=== PATIENT | female | born 1970 | race Caucasian/White ===

== ENCOUNTER 2016-08-27 08:57 | Emergency (ER) | payer SELFPAY ==
[~2016-08-27] VITALS: Ht 160 cm; Wt 101.0 kg
[~2016-08-27 08:57] MED LIST: ALBUTEROL SUL0.083 % IN; AMOXICILLIN500 MG OR; AMOXICILLIN500 MG PO; ANTIVERT PO; ATIVAN0.5 MG PO; ATIVAN1 M1 OR; ATIVAN1 MG PO; AUGMENTIN875 MG OR; CEPHALEXIN500 M1 PO; CEPHALEXIN500 MG OR; CIPRO500 MG OR; CIPROFLOXACN500 MG PO; CORTISPORIN OTI10 M1 OT; CYTOMEL25 MC1 PO; FAMVIR500 MG PO; FISH OIL1000 MG OR; FLEXERIL5 M1 PO; LEVOTHYROXIN200 MC2 PO; LIPITOR40 MG PO; LORTAB 10 OR; LORTAB 10-325 M1 TAB PO; LORTAB 1010 MG PO; LORTAB 5 OR; LORTAB 7.5 OR; MEDDOSEPAK PO; METHADONE HCL10 MG OR; METHADONE40 MG OR; METO50TA52 OR; METOPROL TAR25 MG PO; MOTRIN800 MG PO; NAPROXEN500 MG PO; OXYCO/APAP1 TA5 PO; PAXIL10 MG OR; PENICILLN VK500 MG OR; PENICILLN VK500 MG PO; PERCOCET 5/325M1 TAB OR; PERCOCET1 TA1 OR; PERCOCET1 TA2 OR; ROBITUSSIN AC10 ML PO; SIMVASTATIN20 MG PO; SIMVASTATIN40 MG PO; SIMVASTATIN80 MG OR; SYNTHROID100 MCG PO; SYNTHROID125 MCG OR; SYNTHROID150 MCG OR; SYNTHROID150 MCG PO; SYNTHROID300 MCG OR; TRAZODONE HCL100 MG OR; TRAZODONE100 MG OR; TRAZODONE100 MG PO; ULTRAM50 M1 PO; ULTRAM50 MG OR; ULTRAM50 MG PO; VICODIN ES1 TAB OR; ZOCOR OR; ZOCOR80 MG OR; ZOFRAN ODT4 MG PO; ZOLOFT50 MG OR; ZOVIRAX51 EX
[2016-08-27 10:26] LABS: HEMATOCRIT 42.8 % (37.0-47.0); HEMOGLOBIN 13.6 g/dl (12.0-16.0); IMMATURE GRANULOCYTES 0.7 % (0.0-1.0); MEAN CELL VOLUME 87.5 fL CALC (80.0-100.0); MEAN CORPUSCULAR HGB 27.8 pG CALC (26.0-32.0); MEAN CORPUSCULAR HGB CONC 31.8 g/L CALC (32.0-36.0); NEUT# 3.76 thou/uL (2.00-7.15); RED BLOOD COUNT 4.89 mill/uL (4.20-5.60); RED CELL DISTRI WIDTH 14.6 % (11.5-15.5)
[2016-08-27 10:39] LABS: ALKALINE PHOSPHATASE 118 u/l (38-126); ANION GAP 13 (6-22 (CALC)); BILIRUBIN, TOTAL 0.5 mg/dL (0.0-1.4); BUN 11 mg/dL (7-17); BUN/CREATININE RATIO 15 (12-20 (CALC)); CALCIUM 9.7 mg/dL (8.4-10.2); CARBON DIOXIDE 29 mmol/l (22-30); CHLORIDE 101 mmol/l (95-108); CREATININE 0.7 mg/dL (0.5-1.0); GFR > 60 ML/MIN (>=60 (CALC)); GFR FOR AFR.AMER. > 60 ML/MIN (>=60 (CALC)); GLUCOSE 106 mg/dL (65-105); POTASSIUM 3.5 mmol/l (3.5-5.1); SGOT/AST 35 u/l (14-36); SGPT/ALT 36 u/l (9-52); SODIUM 139 mmol/l (137-146)
[2016-08-27] MEDS ORDERED: PERCOCET 5/325M1 TAB PO (13:28)
[2016-08-27 13:31] VITALS: BP 111/55
== END 2016-08-27 13:41 | disposition home or self-care (01) | DRG 93 ==
LOC: ED 08:57
PROVIDERS: Emergency Medicine
DX: G89.29 Other chronic pain (principal); K76.0 Fatty (change of) liver, not elsewhere classified; M25.562 Pain in left knee; M25.561 Pain in right knee; I89.0 Lymphedema, not elsewhere classified

== ENCOUNTER 2016-09-03 15:55 | Emergency (ER) | payer SELFPAY ==
[~2016-09-03] VITALS: Ht 160 cm; Wt 100.0 kg
[~2016-09-03 15:55] MED LIST changes: +PERCOCET 5/325M1 TAB PO
[2016-09-03] MEDS ORDERED: PERCOCET 5/325M1 TAB PO (16:21)
[2016-09-03 16:41] VITALS: BP 143/87
== END 2016-09-03 16:55 | disposition home or self-care (01) | DRG 558 ==
LOC: ED 15:55
DX: M71.22 Synovial cyst of popliteal space [Baker], left knee (principal); M25.561 Pain in right knee; M71.21 Synovial cyst of popliteal space [Baker], right knee; M25.562 Pain in left knee

== ENCOUNTER 2017-10-29 15:03 | Emergency (ER) | payer SELFPAY ==
[~2017-10-29] VITALS: Ht 160 cm; Wt 105.0 kg
[2017-10-29 15:48] LABS: HEMOGLOBIN 11.8 g/dl (12.0-16.0); MEAN CORPUSCULAR HGB 30.7 pG CALC (26.0-32.0); MEAN CORPUSCULAR HGB CONC 32.5 g/L CALC (32.0-36.0); NEUT# 3.5 thou/uL (2.00-7.15); RED BLOOD COUNT 3.84 mill/uL (4.20-5.60); RED CELL DISTRI WIDTH 14.6 % (11.5-15.5)
[2017-10-29 15:50] LABS: HEMATOCRIT 36.3 % (37.0-47.0); MEAN CELL VOLUME 94.5 fL CALC (80.0-100.0)
[2017-10-29 16:06] LABS: ALKALINE PHOSPHATASE 72 u/l (38-126); AMYLASE 78 u/l (30-110); ANION GAP 9 (6-22 (CALC)); BILIRUBIN, TOTAL 0.4 mg/dL (0.0-1.4); BUN 12 mg/dL (7-17); BUN/CREATININE RATIO 9 (12-20 (CALC)); CARBON DIOXIDE 33 mmol/l (22-30); CHLORIDE 101 mmol/l (95-108); CREATININE 1.4 mg/dL (0.5-1.0); GFR 40 ML/MIN (>=60 (CALC)); GFR FOR AFR.AMER. 48 ML/MIN (>=60 (CALC)); LIPASE 66 u/l (23-300); POTASSIUM 3.8 mmol/l (3.5-5.1); SGPT/ALT 53 u/l (9-52); SODIUM 140 mmol/l (137-146); TOTAL PROTEIN 7.4 g/dL (6.3-8.2)
[2017-10-29] MEDS ORDERED: PAXIL40 MG PO (16:11)
[2017-10-29] MEDS ORDERED: XANAX1 MG PO (16:12)
[2017-10-29] MEDS ORDERED: SYNTHROID100 MCG PO ×2 (16:13→17:55)
[2017-10-29] MEDS ORDERED: TRAZODONE50 MG PO (16:14)
[2017-10-29 16:15] LABS: SGOT/AST 62 u/l (14-36)
[2017-10-29 17:46] LABS: URINE BILIRUBIN - DIPSTICK NEGATIVE (NEGATIVE); URINE BLOOD DIPSTICK TRACE-INTACT (NEGATIVE); URINE COLOR YELLOW; URINE GLUCOSE - DIPSTICK NEGATIVE (NEGATIVE); URINE KETONE NEGATIVE (NEGATIVE); URINE LEUK ESTERASE TRACE (NEGATIVE); URINE NITRITE - DIPSTICK NEGATIVE (Negative); URINE PROTEIN - DIPSTICK NEGATIVE (NEG-TRACE); URINE UROBILINOGEN - DIPSTICK 0.2 E.U./dL (0.2)
[2017-10-29 17:47] LABS: URINE CLARITY CLEAR
[2017-10-29] MEDS ORDERED: MAGNESIUM296 ML/BTL PO (17:55)
[2017-10-29 18:19] VITALS: BP 126/84
== END 2017-10-29 18:19 | disposition home or self-care (01) | DRG 392 ==
LOC: ED 15:03
PROVIDERS: Family Medicine
DX: K59.00 Constipation, unspecified (principal); E03.9 Hypothyroidism, unspecified; F17.290 Nicotine dependence, other tobacco product, uncomplicated; R10.13 Epigastric pain; R33.9 Retention of urine, unspecified; R10.12 Left upper quadrant pain; R10.11 Right upper quadrant pain

== ENCOUNTER 2019-05-20 | Observation (INO) | payer SELFPAY ==
[~2019-05-20] MED LIST changes: +MAGNESIUM296 ML/BTL PO; +PAXIL40 MG PO; +TRAZODONE50 MG PO; +XANAX1 MG PO
[2019-05-20] MEDS ORDERED: PROZAC20 MG PO (20:20)
[2019-05-20 20:59] LABS: HEMATOCRIT 34.8 % (37.0-47.0); HEMOGLOBIN 11.3 g/dl (12.0-16.0); IMMATURE GRANULOCYTES 0.9 % (0.0-5.0); MEAN CELL VOLUME 92.8 fL CALC (80.0-100.0); MEAN CORPUSCULAR HGB 30.1 pG CALC (26.0-32.0); MEAN CORPUSCULAR HGB CONC 32.5 g/L CALC (32.0-36.0); NEUT# 4.71 thou/uL (2.00-7.15); RED BLOOD COUNT 3.75 mill/uL (4.20-5.60); RED CELL DISTRI WIDTH 13.9 % (11.5-15.5)
[2019-05-20 21:04] LABS: URINE BLOOD DIPSTICK TRACE-INTACT (NEGATIVE); URINE GLUCOSE - DIPSTICK NEGATIVE (NEGATIVE); URINE KETONE TRACE mg/dL (NEGATIVE); URINE LEUK ESTERASE NEGATIVE (NEGATIVE); URINE NITRITE - DIPSTICK NEGATIVE (Negative); URINE PROTEIN - DIPSTICK 100 mg/dL (NEG-TRACE); URINE SPECIFIC GRAVITY >=1.030
[2019-05-20 21:08] LABS: BARBITURATES NEGATIVE (NEGATIVE); COCAINE NEGATIVE (NEGATIVE); METHADONE NEGATIVE (NEGATIVE); OXCYCODONE NEGATIVE (NEGATIVE); TETRAHYDROCANNABIONOL NEGATIVE (NEGATIVE); TRICYLIC ANTIDEPRESSANTS NEGATIVE (NEGATIVE)
[2019-05-20 21:09] LABS: URINE BILIRUBIN - DIPSTICK NEGATIVE (NEGATIVE); URINE COLOR DK. YELLOW
[2019-05-20 21:09] LABS: ACT PARTIAL THROMBO TIME 29.2 SECONDS (20.0-32.5); D-DIMER 0.45 mg/L (0.19-0.60); PROTHROMBIN TIME 10.2 SECONDS (9.0-12.5)
[2019-05-20 21:12] LABS: ALBUMIN 4.4 g/dL (3.2-5.0); ALKALINE PHOSPHATASE 98 u/l (38-126); AMYLASE 75 u/l (30-110); ANION GAP 12 (6-22 (CALC)); BILIRUBIN, TOTAL 0.5 mg/dL (0.0-1.4); BUN 15 mg/dL (7-17); BUN/CREATININE RATIO 11 (12-20 (CALC)); CARBON DIOXIDE 27 mmol/l (22-30); CHLORIDE 100 mmol/l (95-108); CREATININE 1.4 mg/dL (0.5-1.0); GFR 40 ML/MIN (>=60 (CALC)); GFR FOR AFR.AMER. 48 ML/MIN (>=60 (CALC)); LIPASE 67 u/l (23-300); POTASSIUM 3.6 mmol/l (3.5-5.1); SGOT/AST 101 u/l (14-36); SODIUM 135 mmol/l (137-146)
[2019-05-20 21:19] LABS: URINE MUCUS FEW hpf (NONE-FEW); URINE SQUAMOUS EPITHELIAL CELL FEW EPI/hpf (0-FEW)
[2019-05-20 21:24] LABS: MYOGLOBIN 415 ng/mL (0 - 62)
[2019-05-20 22:20] LABS: TSH, 3RD GENERATION > 100.00 uIU/mL (0.47 - 4.68)
== END 2019-05-20 23:20 | disposition left against medical advice (07) | DRG 313 ==
PROVIDERS: Family Medicine; ADMIT Internal Medicine
DX: R07.9 Chest pain, unspecified (principal); F15.90 Other stimulant use, unspecified, uncomplicated; E03.9 Hypothyroidism, unspecified; F17.210 Nicotine dependence, cigarettes, uncomplicated
CPT/HCPCS: G0378; J1650

== ENCOUNTER 2019-05-24 12:27 | Emergency (ER) | payer SELFPAY ==
[~2019-05-24 12:27] MED LIST changes: +PROZAC20 MG PO
[2019-05-24] MEDS ORDERED: XANAX1 MG PO (14:26)
[2019-05-24 14:37] VITALS: BP 168/87
== END 2019-05-24 14:37 | disposition home or self-care (01) | DRG 951 ==
LOC: ED 12:27
DX: Z76.0 Encounter for issue of repeat prescription (principal); F41.9 Anxiety disorder, unspecified; F17.210 Nicotine dependence, cigarettes, uncomplicated

== ENCOUNTER 2019-06-07 12:27 | Inpatient (IN) | payer SELFPAY ==
[2019-06-07] VITALS (9 sets, daily range): BP systolic 102–149; BP diastolic 64–97
[~2019-06-07] VITALS: Ht 160 cm; Wt 109.5 kg
--- NOTE | 2019-06-07 12:30 | NUR ---
PATIENT STATES WANTING TO END HER LIFE TOON 45 325MG TYLENOL AT 1000 AND 8MG OF XANAX 8 HOURS PRIOR TO ARRIVAL TODAY. POISON CONTROL CONTACTED AND MD NOTIFIED OF RECOMMENDATIONS. PATIENT RESTING IN DIRECT LINE OF SIGHT. ALL DANGEROUS ITEMS WERE REMOVED FROM ROOM AND PATIENT CHECKED FOR ANY HAZARDOUS ITEMS
[2019-06-07 13:41] LABS: HEMATOCRIT 40.7 % (37.0-47.0); HEMOGLOBIN 13.2 g/dl (12.0-16.0); IMMATURE GRANULOCYTES 0.4 % (0.0-5.0); MEAN CELL VOLUME 92.7 fL CALC (80.0-100.0); MEAN CORPUSCULAR HGB 30.1 pG CALC (26.0-32.0); MEAN CORPUSCULAR HGB CONC 32.4 g/L CALC (32.0-36.0); NEUT# 4.11 thou/uL (2.00-7.15); RED BLOOD COUNT 4.39 mill/uL (4.20-5.60)
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
[2019-06-07 13:58] LABS: PROTHROMBIN TIME 10.7 SECONDS (9.0-12.5)
[2019-06-07 14:01] LABS: ALBUMIN 4.7 g/dL (3.2-5.0); ALKALINE PHOSPHATASE 97 u/l (38-126); ANION GAP 14 (6-22 (CALC)); BILIRUBIN, TOTAL 0.6 mg/dL (0.0-1.4); BUN 23 mg/dL (7-17); BUN/CREATININE RATIO 12 (12-20 (CALC)); CARBON DIOXIDE 26 mmol/l (22-30); CHLORIDE 101 mmol/l (95-108); CPK 1466 u/l (30-165); CREATININE 1.9 mg/dL (0.5-1.0); GFR 28 ML/MIN (>=60 (CALC)); GFR FOR AFR.AMER. 34 ML/MIN (>=60 (CALC)); LIPASE 62 u/l (23-300); POTASSIUM 3.6 mmol/l (3.5-5.1); SGOT/AST 62 u/l (14-36); SODIUM 137 mmol/l (137-146); TOTAL PROTEIN 8.3 g/dL (6.3-8.2)
--- NOTE | 2019-06-07 14:32 | NUR ---
PATEINT RESTING AWAITING LAB RESULTS. MEDS INFUSING PER MD ORDER. PATIENT DENIES ANY PAIN OR CONCERNS AT THIS TIME. PATIENT REMAINS ONE TO ONE. PATIENT HAS NO HAZARDOUS ITEMS AT BEDSIDE
--- NOTE | 2019-06-07 15:26 | NUR ---
PATIENT TRANSPORTED TO ICU. PATIEN DENIES ANY PAIN OR DISCOMFORT AT THIS TIME. PATIENT ALERT AND ORIENTED TIMES 3.
--- NOTE | 2019-06-07 15:40 | NUR ---
PT TO ICU BED 5 VIA STRETCHER. PT ABLE TO AMBULATE TO BSC THEN AMBULATED TO BED. URINE SPECIMEN OBTAINED AND SENT TO LAB. PT IS ALERT AND ORIENTED X3. ADMISSION ASSESSMENT COMPLETED AT THIS TIME. IV PATENT X1. ORIENTED PT TO ROOM AND UNIT. CALL LIGHT IN REACH. PT 1:1 AT THIS TIME. WILL CONTINUE TO MONITOR
[2019-06-07 15:59] LABS: URINE BILIRUBIN - DIPSTICK NEGATIVE (NEGATIVE); URINE BLOOD DIPSTICK TRACE-LYSED (NEGATIVE); URINE COLOR YELLOW; URINE GLUCOSE - DIPSTICK NEGATIVE (NEGATIVE); URINE KETONE 40 mg/dL (NEGATIVE); URINE LEUK ESTERASE TRACE (NEGATIVE); URINE NITRITE - DIPSTICK NEGATIVE (Negative); URINE PH 5.5 (4.5-8.0); URINE PROTEIN - DIPSTICK NEGATIVE (NEG-TRACE); URINE SPECIFIC GRAVITY 1.025; URINE UROBILINOGEN - DIPSTICK 0.2 E.U./dL (0.2)
[2019-06-07 16:04] LABS: COCAINE NEGATIVE (NEGATIVE); METHADONE NEGATIVE (NEGATIVE); TETRAHYDROCANNABIONOL NEGATIVE (NEGATIVE); TRICYLIC ANTIDEPRESSANTS NEGATIVE (NEGATIVE)
[2019-06-07 16:05] LABS: BARBITURATES NEGATIVE (NEGATIVE); OXCYCODONE NEGATIVE (NEGATIVE)
--- NOTE | 2019-06-07 16:40 | NUR ---
PT STATES THAT SHE IS HAVING ANXIETY AND WANTS TO TAKE EVERYTHING OFF AND RUN OUT OF HERE.
--- NOTE | 2019-06-07 16:41 | NUR ---
DR DUVALL NOTIFIED OF THREATS AND INCREASED ANXIETY
--- NOTE | 2019-06-07 17:20 | NUR ---
ADAM HUSAIN AT DOOR. EXPALINED THAT PATIENT WAS NOT ALLOWED VISITORS. PT BECAME DEMANDING TO SEE SPOUSE EXPLAINED THAT SHE IS A LI ACT AND NOT ALLED VISITORS. EXPLAINED THAT DAUGHTER HAD REQUESTED NO INFORMATION BE GIVEN. ADAM MEI AT THIS TIME. THEN WENT TO MED SURG TO GIVE PHONE NUMBER.
--- NOTE | 2019-06-07 17:30 | NUR ---
SECOND UDS OBTAINED PER MD ORDER.
--- NOTE | 2019-06-07 17:45 | NUR ---
PT SET UP FOR PM MEAL AT THIS TIME
--- NOTE | 2019-06-07 17:59 | NUR ---
LAB AT BEDSIDE TO DRAW BLOOD WORK
--- NOTE | 2019-06-07 18:18 | NUR ---
PT GIVES PERMISSION FOR ADAM TO HAVE ALL MEDICAL INFORMATION VIA TELEPHONE AT THIS TIME.
--- NOTE | 2019-06-07 18:25 | NUR ---
CALL PLACED TO ADAM AT [phone] AT THIS THIS VOICEMAIL LEFT TO CALL [facility] ICU. PT THEN YELLS OUT FROM ROOM OH YOU GOT HIS VOICEMAIL. EXPLAINED THAT WE WILL NOT BE DOING THIS ALL NIGHT A MESSAGING SERVICE. I WILL UPDATE ON STATUS AND HE CAN CALL FROM THERE FOR UPDATES. SHE IS IN THE ICU WITH OTHER SICK PATIENTS. PATIENT VERBALIZED UNDERSTANDING
[2019-06-07 18:39] LABS: BARBITURATES NEGATIVE (NEGATIVE); COCAINE NEGATIVE (NEGATIVE); METHADONE NEGATIVE (NEGATIVE); OXCYCODONE NEGATIVE (NEGATIVE); TETRAHYDROCANNABIONOL NEGATIVE (NEGATIVE); TRICYLIC ANTIDEPRESSANTS NEGATIVE (NEGATIVE)
--- NOTE | 2019-06-07 18:48 | NUR ---
POISON CONTROL PHONED UNIT. NEW RECOMMENDATIONS GIVEN FOR AM LABS. NOTIFIED OF POSITIVE UDS.
--- NOTE | 2019-06-07 18:50 | NUR ---
RECEIVED REPORT FROM MARGE HOWARD.
--- NOTE | 2019-06-07 19:05 | NUR ---
RECEIVED PT SLEEPING IN BED. RESP EVEN AND UNLABORED. SITTER AT BEDSIDE.
--- NOTE | 2019-06-07 20:00 | NUR ---
PT WITH EYES CLOSED, RESPONDS TO VERBAL STIMULI. FOLLOWS COMMANDS. NO DISTRESS NOTED AT THIS TIME. SITTER AT BEDSIDE.
--- NOTE | 2019-06-07 21:15 | NUR ---
PT ASSISTED TO BSC.
--- NOTE | 2019-06-07 22:00 | NUR ---
PT WITH EYES CLOSED, RESPONDS TO VERBAL STIMULI. PT RELATED SHE FEELS BETTER, LESS ANXIOUS. SITTER AT BEDSIDE.
[2019-06-08] VITALS (11 sets, daily range): BP systolic 99–152; BP diastolic 46–96
--- NOTE | 2019-06-08 | NUR ---
PT WITH EYES CLOSED, RESPONDS TO VERBAL STIMULI. RESP EVEN AND UNLABORED. SITTER AT BEDSIDE.
--- NOTE | 2019-06-08 02:16 | NUR ---
ASSISTED BACK TO BED. CALL GALVEZ IN REACH.
--- NOTE | 2019-06-08 07:10 | NUR ---
REPORT RECEIVED FROM ANITA CARDOSO. PT RESTING IN BED SEMI FOWLERS; ALERT AND ORIENTED. C/O MILD CHRONIC BACK PAIN. RESPIRATIONS EVEN AND UNLABRORED ON ROOM AIR. LUNGS ARE CLEAR. LI ACT. SITTER AT BEDSIDE. PLAN OF CARE REVIEWED. PT ENCOURAGED TO VERBALIZE CONCERNS. STATES UNDERSTANDING. SAFETY MEASURES IN PLACE. CALL LIGHT WITHIN REACH.
[2019-06-08 08:14] LABS: HEMATOCRIT 40.3 % (37.0-47.0); MEAN CELL VOLUME 91.8 fL CALC (80.0-100.0); MEAN CORPUSCULAR HGB 29.6 pG CALC (26.0-32.0); MEAN CORPUSCULAR HGB CONC 32.3 g/L CALC (32.0-36.0); RED BLOOD COUNT 4.39 mill/uL (4.20-5.60)
--- NOTE | 2019-06-08 08:26 | NUR ---
DR. DUVALL AT BEDSIDE.
[2019-06-08 08:47] LABS: INTERNATIONAL NORMALIZED RATIO 1.1 RATIO (0.7-1.3); PROTHROMBIN TIME 11.1 SECONDS (9.0-12.5)
[2019-06-08 08:56] LABS: ALBUMIN 4.4 g/dL (3.2-5.0); BILIRUBIN, TOTAL 0.4 mg/dL (0.0-1.4); CREATININE 1.2 mg/dL (0.5-1.0); POTASSIUM 3.6 mmol/l (3.5-5.1); TOTAL PROTEIN 7.8 g/dL (6.3-8.2)
[2019-06-08] MEDS ORDERED: LORTAB 1010 MG PO (09:43)
[2019-06-08] MEDS ORDERED: WELLBUTRIN100 M2 PO (09:43)
--- NOTE | 2019-06-08 10:02 | NUR ---
XANAX GIVEN FOR ANXIETY; MED REC UPDATED. PT REQUESTING DISCHARGE TO GO TO [facility]. SITTER AT BEDSIDE. IV FLUIDS INFUSING WITHOUT DIFFICULTY; IV SITE APPEARS HEALTHY.
--- NOTE | 2019-06-08 11:15 | NUR ---
PT ASSISTED TO BSC, PT AMBULATED WITH A STEADY GAIT, PT TOLERATED WELL
--- NOTE | 2019-06-08 11:30 | NUR ---
PT ASSISTED WITH SETUP FOR LUNCH
--- NOTE | 2019-06-08 14:13 | NUR ---
POSIION CONTROL UPDATED ON PT STATUS. SPOKE WITH JOVAN; SAYS PT IS OK FOR DISCHARGE LONG SHE STAYS WELL HYDRATED. DR. DUVALL NOTIFIED OF RECOMMENDATION.
--- NOTE | 2019-06-08 16:23 | NUR ---
PT RESTING COMFORTABLY IN BED WATCHING TV. SITTER AT BEDSIDE. CASE MANAGMENT CONSULTING FOR POSSIBLE DISCHARGE TO [facility]. SAFETY MEASURES IN PLACE. CALL LIGHT WITHIN REACH.
--- NOTE | 2019-06-08 19:05 | NUR ---
RECEIVED REPORT FROM LIANNA HOWARD.
--- NOTE | 2019-06-08 20:00 | NUR ---
PT WITH EYES CLOSED, RESPONDED TO VERBAL STIMULI. SITTER AT BEDSIDE. NO DISTRESS NOTED.
--- NOTE | 2019-06-08 20:30 | NUR ---
SPOKE TO SARAH AT [facility]. HE STATES PATIENT INFORMATION HAS BEEN REVIEWED AND ACCEPTABLE FOR TRANSFER. WILL NOTIFY
--- NOTE | 2019-06-08 20:35 | NUR ---
PT REQUESTED HER ANXIETY MED. PT RELATED SHE IS FEELING ANXIOUS.
--- NOTE | 2019-06-08 21:57 | NUR ---
[facility] CALLED FOR TRANSPORT TO [facility].
--- NOTE | 2019-06-08 22:20 | NUR ---
[facility] AT BEDSIDE.
--- NOTE | 2019-06-08 22:25 | NUR ---
PT IN W/C, DEPARTED WITH [facility].
--- NOTE | 2019-06-08 22:40 | NUR ---
[facility] CALLED, INFORMED PT ENROUTE.
== END 2019-06-08 22:35 | disposition designated cancer center or children's hospital (05) | DRG 918 ==
LOC: ED 12:27 → ED-I 14:33 → ED 14:53 → ICU 14:54
PROVIDERS: Family Medicine; ADMIT Internal Medicine; ATTEND Internal Medicine
DX: T39.1X2A Poisoning by 4-Aminophenol derivatives, intentional self-harm, initial encounter (principal); Q60.0 Renal agenesis, unilateral; N17.9 Acute kidney failure, unspecified; T42.4X2A Poisoning by benzodiazepines, intentional self-harm, initial encounter; E86.0 Dehydration; F31.9 Bipolar disorder, unspecified; F41.9 Anxiety disorder, unspecified; E03.9 Hypothyroidism, unspecified; F17.200 Nicotine dependence, unspecified, uncomplicated; Z91.5 Personal history of self-harm

== ENCOUNTER 2019-06-13 | Emergency (ER) | payer OTHER ==
[~2019-06-13] MED LIST changes: +WELLBUTRIN100 M2 PO
[2019-06-13] MEDS ORDERED: INDERAL 20MG TA20 MG PO (22:58)
[2019-06-13] MEDS ORDERED: PRAVACHOL20 MG PO (22:59)
[2019-06-13 23:00] LABS: HEMATOCRIT 37.4 % (37.0-47.0); HEMOGLOBIN 11.8 g/dl (12.0-16.0); IMMATURE GRANULOCYTES 0.3 % (0.0-5.0); MEAN CELL VOLUME 94.9 fL CALC (80.0-100.0); MEAN CORPUSCULAR HGB 29.9 pG CALC (26.0-32.0); MEAN CORPUSCULAR HGB CONC 31.6 g/L CALC (32.0-36.0); NEUT# 3.62 thou/uL (2.00-7.15); RED BLOOD COUNT 3.94 mill/uL (4.20-5.60); RED CELL DISTRI WIDTH 14.5 % (11.5-15.5)
[2019-06-13 23:20] LABS: ALKALINE PHOSPHATASE 80 u/l (38-126); BILIRUBIN, TOTAL 0.3 mg/dL (0.0-1.4); BUN 20 mg/dL (7-17); BUN/CREATININE RATIO 17 (12-20 (CALC)); CHLORIDE 103 mmol/l (95-108); CREATININE 1.2 mg/dL (0.5-1.0); GFR 47 ML/MIN (>=60 (CALC)); GFR FOR AFR.AMER. 57 ML/MIN (>=60 (CALC)); POTASSIUM 3.8 mmol/l (3.5-5.1); SGOT/AST 37 u/l (14-36); SODIUM 138 mmol/l (137-146); TOTAL PROTEIN 7.2 g/dL (6.3-8.2)
[2019-06-13 23:22] LABS: ANION GAP 9 (6-22 (CALC)); CARBON DIOXIDE 30 mmol/l (22-30)
[2019-06-13 23:31] LABS: MYOGLOBIN 75 ng/mL (0 - 62)
[2019-06-14 02:54] LABS: URINE BILIRUBIN - DIPSTICK NEGATIVE (NEGATIVE); URINE BLOOD DIPSTICK NEGATIVE (NEGATIVE); URINE COLOR YELLOW; URINE GLUCOSE - DIPSTICK NEGATIVE (NEGATIVE); URINE KETONE NEGATIVE (NEGATIVE); URINE LEUK ESTERASE NEGATIVE (NEGATIVE); URINE NITRITE - DIPSTICK NEGATIVE (Negative); URINE PROTEIN - DIPSTICK NEGATIVE (NEG-TRACE); URINE SPECIFIC GRAVITY 1.015; URINE UROBILINOGEN - DIPSTICK 0.2 E.U./dL (0.2)
[2019-06-14 02:59] LABS: BARBITURATES NEGATIVE (NEGATIVE); COCAINE NEGATIVE (NEGATIVE); METHADONE NEGATIVE (NEGATIVE); TETRAHYDROCANNABIONOL NEGATIVE (NEGATIVE); TRICYLIC ANTIDEPRESSANTS NEGATIVE (NEGATIVE)
[2019-06-14 03:00] LABS: OXCYCODONE NEGATIVE (NEGATIVE)
== END 2019-06-14 03:59 | DRG 313 ==
PROVIDERS: Emergency Medicine
DX: R07.9 Chest pain, unspecified (principal); I25.10 Atherosclerotic heart disease of native coronary artery without angina pectoris; F17.210 Nicotine dependence, cigarettes, uncomplicated; Z95.5 Presence of coronary angioplasty implant and graft; Z02.83 Encounter for blood-alcohol and blood-drug test; F19.10 Other psychoactive substance abuse, uncomplicated

== ENCOUNTER 2019-08-24 21:15 | Emergency (ER) | payer OTHER ==
[~2019-08-24 21:15] MED LIST changes: +INDERAL 20MG TA20 MG PO; +PRAVACHOL20 MG PO
[2019-08-24 22:03] LABS: HEMOGLOBIN 11.4 g/dl (12.0-16.0); IMMATURE GRANULOCYTES 0.3 % (0.0-5.0); MEAN CELL VOLUME 91.4 fL CALC (80.0-100.0); MEAN CORPUSCULAR HGB 29.8 pG CALC (26.0-32.0); MEAN CORPUSCULAR HGB CONC 32.6 g/dL CAL (32.0-36.0); NEUT# 3.57 thou/uL (2.00-7.15); RED BLOOD COUNT 3.83 mill/uL (4.20-5.60); RED CELL DISTRI WIDTH 14.2 % (11.5-15.5)
[2019-08-24 22:19] LABS: ALBUMIN 4.5 g/dL (3.2-5.0); ALKALINE PHOSPHATASE 77 u/l (38-126); ANION GAP 11 (6-22 (CALC)); BUN 27 mg/dL (7-17); BUN/CREATININE RATIO 18 (12-20 (CALC)); CARBON DIOXIDE 26 mmol/l (22-30); CHLORIDE 101 mmol/l (95-108); CREATININE 1.5 mg/dL (0.5-1.0); GFR 37 ML/MIN (>=60 (CALC)); GFR FOR AFR.AMER. 44 ML/MIN (>=60 (CALC)); POTASSIUM 3.4 mmol/l (3.5-5.1); SGOT/AST 49 u/l (14-36); SODIUM 134 mmol/l (137-146); TOTAL PROTEIN 7.5 g/dL (6.3-8.2)
[2019-08-24 22:26] LABS: BILIRUBIN, TOTAL 0.5 mg/dL (0.0-1.4)
[2019-08-24 22:32] LABS: MYOGLOBIN 201 ng/mL (0 - 62)
== END 2019-08-24 23:48 | disposition left against medical advice (07) | DRG 313 ==
LOC: ED 21:15
PROVIDERS: Emergency Medicine
DX: R07.9 Chest pain, unspecified (principal); I25.10 Atherosclerotic heart disease of native coronary artery without angina pectoris; F17.210 Nicotine dependence, cigarettes, uncomplicated; Z91.19 Patient's noncompliance with other medical treatment and regimen

== ENCOUNTER 2019-09-13 16:01 | Emergency (ER) | payer SELFPAY ==
[2019-09-13 16:54] LABS: HEMATOCRIT 36.7 % (37.0-47.0); IMMATURE GRANULOCYTES 1.4 % (0.0-5.0); MEAN CORPUSCULAR HGB 30.1 pG CALC (26.0-32.0); MEAN CORPUSCULAR HGB CONC 32.7 g/dL CAL (32.0-36.0); NEUT# 3.88 thou/uL (2.00-7.15); RED BLOOD COUNT 3.99 mill/uL (4.20-5.60); RED CELL DISTRI WIDTH 14.9 % (11.5-15.5)
[2019-09-13 17:03] LABS: ALBUMIN 4.3 g/dL (3.2-5.0); ALKALINE PHOSPHATASE 76 u/l (38-126); ANION GAP 13 (6-22 (CALC)); BUN 11 mg/dL (7-17); BUN/CREATININE RATIO 11 (12-20 (CALC)); CARBON DIOXIDE 25 mmol/l (22-30); CHLORIDE 102 mmol/l (95-108); GFR 58 ML/MIN (>=60 (CALC)); GFR FOR AFR.AMER. > 60 ML/MIN (>=60 (CALC)); LIPASE 73 u/l (23-300); POTASSIUM 3.9 mmol/l (3.5-5.1); SGOT/AST 50 u/l (14-36); SODIUM 136 mmol/l (137-146); TOTAL PROTEIN 7.9 g/dL (6.3-8.2)
[2019-09-13 17:04] LABS: BILIRUBIN, TOTAL 0.9 mg/dL (0.0-1.4)
[2019-09-13] MEDS ORDERED: LASIX 40 MG TAB40 MG PO (20:15)
[2019-09-13] MEDS ORDERED: SYNTHROID175 MCG PO (20:15)
[2019-09-13 22:43] LABS: URINE BILIRUBIN - DIPSTICK NEGATIVE (NEGATIVE); URINE BLOOD DIPSTICK NEGATIVE (NEGATIVE); URINE COLOR YELLOW; URINE GLUCOSE - DIPSTICK NEGATIVE (NEGATIVE); URINE KETONE NEGATIVE (NEGATIVE); URINE LEUK ESTERASE NEGATIVE (NEGATIVE); URINE NITRITE - DIPSTICK NEGATIVE (Negative); URINE PROTEIN - DIPSTICK NEGATIVE (NEG-TRACE); URINE UROBILINOGEN - DIPSTICK 0.2 E.U./dL (0.2)
[2019-09-13] MEDS ORDERED: TRAMADOL HCL50 MG PO (22:48)
[2019-09-13 23:38] VITALS: BP 137/84
--- NOTE | 2019-09-15 08:38 | NUR ---
SPOEK WITH LAB THIS AM, 2/4 BOTTLES GROWING GRAM POSITIVE COCCI. CALLED PT, PT REPORTS FEVER OF 101 AND CHILLS. ADVISED PT TO FOLLOW UP WITH PCP TODAY IF POSSIBLE OR RETURN TO ER FOR EVALUATION. PT UNDERSTOOD, SAID ITS HARD TO GET IN WITH PCP. SOUNDS LIKE SHE'LL BE RETURNING TO ER. ADVISED DR SWEENEY IN ER
--- NOTE | 2019-09-16 09:08 | NUR ---
SPOKE WITH PT YESTERDAY RE PRELIM BLOOD CX RESULTS / GRAM POSITIVE COCCI. PT REPORTED STILL NOT FEELING WELL AND HAD A FEVER OF 101. PT RETURNED TO ER YESTERDAY, WAS ADMITTED, THEN LEFT AMA. FINAL BLOOD CX SHOWS STAPH HOMINIS, LIKELY A CONTAMINANT. PER IVAN SIDDIQUI, NO FURTHER FOLLOW UP WARRANTED.
== END 2019-09-13 23:15 | disposition home or self-care (01) | DRG 392 ==
LOC: ED 16:01
PROVIDERS: Student in an Organized Health Care Education/Training Program
DX: R10.11 Right upper quadrant pain (principal); I25.10 Atherosclerotic heart disease of native coronary artery without angina pectoris; F17.210 Nicotine dependence, cigarettes, uncomplicated; Z85.43 Personal history of malignant neoplasm of ovary; Z11.59 Encounter for screening for other viral diseases
CPT/HCPCS: Q9967

== ENCOUNTER 2019-09-15 10:50 | Observation (INO) | payer SELFPAY ==
[~2019-09-15] VITALS: Ht 160 cm; Wt 116.0 kg
[~2019-09-15 10:50] MED LIST changes: +LASIX 40 MG TAB40 MG PO; +SYNTHROID175 MCG PO; +TRAMADOL HCL50 MG PO
--- NOTE | 2019-09-15 11:00 | NUR ---
PT AMB TO ROOM AND REQUESTED TO URINATE PRIOR TO TRIAGE, NO DISTRESS NOTED
[2019-09-15 11:49] LABS: HEMATOCRIT 35.5 % (37.0-47.0); HEMOGLOBIN 11.1 g/dl (12.0-16.0); IMMATURE GRANULOCYTES 2.7 % (0.0-5.0); MEAN CELL VOLUME 93.4 fL CALC (80.0-100.0); MEAN CORPUSCULAR HGB 29.2 pG CALC (26.0-32.0); MEAN CORPUSCULAR HGB CONC 31.3 g/dL CAL (32.0-36.0); NEUT# 3.33 thou/uL (2.00-7.15); RED BLOOD COUNT 3.8 mill/uL (4.20-5.60); RED CELL DISTRI WIDTH 14.7 % (11.5-15.5); URINE BILIRUBIN - DIPSTICK NEGATIVE (NEGATIVE); URINE BLOOD DIPSTICK NEGATIVE (NEGATIVE); URINE COLOR YELLOW; URINE GLUCOSE - DIPSTICK NEGATIVE (NEGATIVE); URINE KETONE NEGATIVE (NEGATIVE); URINE LEUK ESTERASE NEGATIVE (NEGATIVE); URINE NITRITE - DIPSTICK NEGATIVE (Negative); URINE PH 6.5 (4.5-8.0); URINE PROTEIN - DIPSTICK NEGATIVE (NEG-TRACE); URINE UROBILINOGEN - DIPSTICK 0.2 E.U./dL (0.2)
--- NOTE | 2019-09-15 12:14 | NUR ---
PT MEDICATED PER MAR FOR GENERALIZED BODY PAIN RATING 9 OUT OF 10; MONITORING DEVICES IN PLACE; VSS; WILL CONTINUE TO MONITOR
[2019-09-15 12:16] LABS: ALBUMIN 4.4 g/dL (3.2-5.0); ALKALINE PHOSPHATASE 77 u/l (38-126); AMYLASE 88 u/l (30-110); BUN 12 mg/dL (7-17); BUN/CREATININE RATIO 11 (12-20 (CALC)); C-REACTIVE PROTEIN < 0.5 mg/dL (0-0.9); CHLORIDE 101 mmol/l (95-108); CREATININE 1.1 mg/dL (0.5-1.0); GFR 52 ML/MIN (>=60 (CALC)); GFR FOR AFR.AMER. > 60 ML/MIN (>=60 (CALC)); LIPASE 80 u/l (23-300); POTASSIUM 3.6 mmol/l (3.5-5.1); SGOT/AST 40 u/l (14-36); SODIUM 138 mmol/l (137-146); TOTAL PROTEIN 7.8 g/dL (6.3-8.2)
[2019-09-15 12:18] LABS: ANION GAP 9 (6-22 (CALC)); BILIRUBIN, TOTAL 0.4 mg/dL (0.0-1.4); CARBON DIOXIDE 32 mmol/l (22-30)
--- NOTE | 2019-09-15 13:00 | NUR ---
PT RESTING ON STRETCHER; NO S/S OF DISTRESS NOTED; PT STATES PAIN HAS IMPRIVED AT THIS TIME; ADVISED OF CONTINUED WAIT TIME; MONITORING DEVICES IN PLACE; VSS; WILL CONTINUE TO MONITOR
--- NOTE | 2019-09-15 14:00 | NUR ---
DR SWEENEY AT BEDSIDE TO DISCUSS POC AND FINDINGS
--- NOTE | 2019-09-15 14:30 | NUR ---
PT TO [facility] ROOM 268 VIA WHEELCHAIR ACCOMPANIED BY ER NURSE. PT AMBULATED TO BED WITH STEADY GAIT ACCOMPANIED BY SPOUSE. PT IS ALERT AND ORIENTED X3. ADMISSION COMPLETED AT THIS TIME. IV PATENT X1. PT ORIENTED TO ROOM AND UNIT. CALL LIGHT IN REACH. WILL CONTINUE TO MONITOR.
--- NOTE | 2019-09-15 14:30 | NUR ---
Admission Note Report Given to: ANITA BIRD Transported by: X Wheelchair Stretcher Transported with: X Nurse Transporter X Patent IV O2 Financial Adviser Location: ICU X MS2
[2019-09-15 14:40] VITALS: BP 158/105
[2019-09-15 15:15] VITALS: BP 143/90
--- NOTE | 2019-09-15 16:00 | NUR ---
PT RESTING IN BED WATCHING TV. PT WITH COMPLATINS OF PAIN. PT EXPLAINED THAT A REQUEST TO MD HAD BEEN MADE FOR PAIN MEDICATION. PT VERBALIZED UNDERSTANDING. CALL LIGHT IN REACH. WILL CONTINUE TO MONITOR.
--- NOTE | 2019-09-15 17:30 | NUR ---
MEDICATION REC UPDATED PER PATIENT. WHEN ASKING PATIENT WHICH PHARMACY THAT SHE USES. PT STATES THAT SHE USES ALL OF THEM. [facility] NOTIFIED.
[2019-09-15 18:52] VITALS: BP 135/84
--- NOTE | 2019-09-15 19:38 | NUR ---
PT WAS SLEEPING, AWOKE TO MY ENTERING ROOM WHEN TOLD HER I WAS THERE. PT ASSESSMENT COMPLETED AT THIS TIME. PT ASKED "CAN I GET THE PAIN MEDICATIONS THE DOCTOR HAS THEM SCHEDULED SO I CAN SLEEP." I ADVISED PT THAT I WOULD CHECK WHAT IS AVAILABLE FOR HER AND ASKED IF SHE WAS IN PAIN AT THIS TIME. SHE REPLIED," A LITTLE AT THIS TIME, BUT IT GETS BAD AT NIGHT IN MY ELBOWS." WILL FOLLOW-UP WITH MED SCHEDULE AND MEDICATIONS ORDERS PROVIDE AND NEED CALLS FOR.
--- NOTE | 2019-09-15 20:10 | NUR ---
PT CALLED TO NURSING STATION ASKING FOR A ROLL-AWAY BED FOR HER . I INFORMED PT THAT OUR VISITATION HOURS ENDED AT 7PM AT THIS TIME AND THAT WE WERE NOT ALLOWING ANY OVERNIGHT STAYS. SHE REPLIED THAT THE ED STAFF TOLD HER THAT HE COULD STAY WITH HER. SUPERVISION CONSULTED AT THIS TIME AND PT INFORMED THAT VISITATION HOURS HAVE ENDED.
--- NOTE | 2019-09-15 20:38 | NUR ---
PT CALLED TO ASK FOR HOUSE NURSING FRONT END JAVA DEVELOPER TO ASK IF HER COULD STAY THE NIGHT WITH HER. FRONT END JAVA DEVELOPER IS IN W/PT AND AT THIS TIME.
--- NOTE | 2019-09-15 20:45 | NUR ---
PT FOUND WITH IV PULLED, BLOOD SPATTERED ON FLOOR AND BED/SMALL AMOUNT. SITE IS NO LONGER BLEEDING, IV PUMP STILL RUNNING, GOWN OFF AND STREET CLOTHES ARE ON. PT STATES SHE IS LEAVING. AMA PAPER PROVIDED AND PT ENCOURAGED TO STAY FOR TREATEMENT AND ADVISED AGAINST LEAVING PRIOR TO APPROPRIATE TREATMENT. PT REFUSED.
== END 2019-09-15 20:45 | disposition left against medical advice (07) | DRG 872 ==
LOC: ED 10:50 → ED-I 13:12 → ED 13:17 → ED-I 13:18 → MS2 13:41
PROVIDERS: ADMIT Internal Medicine; ATTEND Internal Medicine
DX: R78.81 Bacteremia (principal); Q60.0 Renal agenesis, unilateral; R10.10 Upper abdominal pain, unspecified; R50.9 Fever, unspecified; M25.562 Pain in left knee; M25.561 Pain in right knee; M25.522 Pain in left elbow; M25.521 Pain in right elbow; M25.422 Effusion, left elbow; M25.421 Effusion, right elbow; E03.9 Hypothyroidism, unspecified; F31.9 Bipolar disorder, unspecified; I25.10 Atherosclerotic heart disease of native coronary artery without angina pectoris; F17.210 Nicotine dependence, cigarettes, uncomplicated; Z85.43 Personal history of malignant neoplasm of ovary; Z79.52 Long term (current) use of systemic steroids; Z20.828 Contact with and (suspected) exposure to other viral communicable diseases
CPT/HCPCS: G0378; J3370; S0164

== ENCOUNTER 2019-10-02 15:27 | Emergency (ER) | payer SELFPAY ==
[~2019-10-02] VITALS: Ht 160 cm; Wt 95.0 kg
[2019-10-02] MEDS ORDERED: XANAX1 MG PO (15:51)
[2019-10-02 16:00] LABS: HEMATOCRIT 36.9 % (37.0-47.0); HEMOGLOBIN 11.8 g/dl (12.0-16.0); IMMATURE GRANULOCYTES 0.5 % (0.0-5.0); MEAN CELL VOLUME 90.9 fL CALC (80.0-100.0); MEAN CORPUSCULAR HGB 29.1 pG CALC (26.0-32.0); NEUT# 3.64 thou/uL (2.00-7.15); RED BLOOD COUNT 4.06 mill/uL (4.20-5.60); RED CELL DISTRI WIDTH 14.8 % (11.5-15.5)
[2019-10-02 16:17] LABS: ALBUMIN 4.6 g/dL (3.2-5.0); ALKALINE PHOSPHATASE 103 u/l (38-126); ANION GAP 12 (6-22 (CALC)); BILIRUBIN, TOTAL 0.4 mg/dL (0.0-1.4); BUN 17 mg/dL (7-17); BUN/CREATININE RATIO 16 (12-20 (CALC)); CARBON DIOXIDE 27 mmol/l (22-30); CHLORIDE 102 mmol/l (95-108); CREATININE 1.1 mg/dL (0.5-1.0); GFR 52 ML/MIN (>=60 (CALC)); GFR FOR AFR.AMER. > 60 ML/MIN (>=60 (CALC)); LIPASE 154 u/l (23-300); SODIUM 138 mmol/l (137-146); TOTAL PROTEIN 7.8 g/dL (6.3-8.2)
[2019-10-02 16:19] LABS: SGOT/AST 157 u/l (14-36)
[2019-10-02 16:21] LABS: C-REACTIVE PROTEIN < 0.5 mg/dL (0-0.9)
[2019-10-02 19:58] VITALS: BP 106/56
== END 2019-10-02 19:58 | disposition home or self-care (01) | DRG 392 ==
LOC: ED 15:27
PROVIDERS: Family Medicine
DX: R10.84 Generalized abdominal pain (principal); R51 Headache; I10 Essential (primary) hypertension; F17.200 Nicotine dependence, unspecified, uncomplicated; Z20.828 Contact with and (suspected) exposure to other viral communicable diseases
CPT/HCPCS: Q9967

== ENCOUNTER 2019-10-03 09:14 | Observation (INO) | payer SELFPAY ==
[~2019-10-03] VITALS: Ht 160 cm; Wt 95.0 kg
--- NOTE | 2019-10-03 09:21 | NUR ---
PT AMBULATED TO ROOM WITH SLOW STEAYD GAIT.
--- NOTE | 2019-10-03 09:35 | NUR ---
PT CHANGED TO GOWN. ASSESSED. AO X 3. SKIN PINK WARM AND DRY. REPORTS BODY ACHES TODAY. SEEN IN ED YESTERDAY
[2019-10-03 09:53] LABS: URINE BILIRUBIN - DIPSTICK NEGATIVE (NEGATIVE); URINE BLOOD DIPSTICK NEGATIVE (NEGATIVE); URINE COLOR YELLOW; URINE GLUCOSE - DIPSTICK NEGATIVE (NEGATIVE); URINE KETONE NEGATIVE (NEGATIVE); URINE LEUK ESTERASE TRACE (NEGATIVE); URINE NITRITE - DIPSTICK NEGATIVE (Negative); URINE PROTEIN - DIPSTICK NEGATIVE (NEG-TRACE); URINE SPECIFIC GRAVITY 1.015; URINE UROBILINOGEN - DIPSTICK 0.2 E.U./dL (0.2)
[2019-10-03 09:54] LABS: HEMATOCRIT 39.9 % (37.0-47.0); HEMOGLOBIN 12.6 g/dl (12.0-16.0); IMMATURE GRANULOCYTES 0.6 % (0.0-5.0); MEAN CELL VOLUME 93.2 fL CALC (80.0-100.0); MEAN CORPUSCULAR HGB 29.4 pG CALC (26.0-32.0); MEAN CORPUSCULAR HGB CONC 31.6 g/dL CAL (32.0-36.0); NEUT# 3.4 thou/uL (2.00-7.15); RED BLOOD COUNT 4.28 mill/uL (4.20-5.60)
[2019-10-03 10:03] LABS: ALBUMIN 4.8 g/dL (3.2-5.0); BILIRUBIN, TOTAL 0.4 mg/dL (0.0-1.4); CREATININE 1.3 mg/dL (0.5-1.0); POTASSIUM 3.8 mmol/l (3.5-5.1); TOTAL PROTEIN 8.6 g/dL (6.3-8.2)
--- NOTE | 2019-10-03 10:18 | NUR ---
PT MEDICATED FOR PAIN. ANTIBIOTICS INFUSING
--- NOTE | 2019-10-03 11:30 | NUR ---
PT RESTING ON STRETCHER. AT BEDSIDE. AWAITING MED SURG BED ASSIGNMENT
--- NOTE | 2019-10-03 12:54 | NUR ---
PT REPORTS PAIN 11/14. ADMITTING DOCTOR CONTACTED
--- NOTE | 2019-10-03 13:09 | NUR ---
SBAR PRINTED TO FLOOR
--- NOTE | 2019-10-03 14:09 | NUR ---
MED SURG UNABLE TO TAKE REPORT AT THIS TIME
--- NOTE | 2019-10-03 14:16 | NUR ---
REPORT REC FROM YESI HOWARD
--- NOTE | 2019-10-03 14:22 | NUR ---
REPORT GIVEN TO GERI HOWARDYARN EXAMINER SKEINS
--- NOTE | 2019-10-03 15:06 | NUR ---
PT RESTING ON STRETCHER. WAITING ROOM TO BE READY FOR TRANSPORT
--- NOTE | 2019-10-03 15:35 | NUR ---
PT TAKEN VIA WHEELCHAIR TO MED SURG
--- NOTE | 2019-10-03 15:40 | NUR ---
PT ARRIVED TO MS VIA WC ACCOMPANIED BY YESI HOWARD. PT A&O X3. WITH AT BEDSIDE. PT JAUNDICE IN APPEARANCE. EDEMA NOTED TO BILATERAL ANKLES. PT REPORTS NO RELIEF OF PAIN. PER PT SHE HAS BEEN TESTED FOR COVID RECENTLY AT THE HEALTH DEPT WITH NEGATIVE RESULTS PER PT SHE GOT SWABBED YESTERDAY WELL. PT STATES THAT SHE HAS HAD THIS PAIN FOR A COUPLE OF DAYS/WEEKS. NO OTHER NEEDS AT THIS TIME. ASSESSMENT COMPLETED. ORIENTED PT TO ROOM. CALL LIGHT IN REACH. CONTINUE TO MONITOR.
--- NOTE | 2019-10-03 16:33 | NUR ---
ORDERS REC FOR D/C OF FLUID ORDER ALONG WITH MORPHINE 2MG Q6 FOR SEVERE PAIN. ORDERS FAXED TO [facility]
--- NOTE | 2019-10-03 18:03 | NUR ---
PER [facility] ORDER NOT REC. WILL RESEND
[2019-10-03 19:03] VITALS: BP 124/73
--- NOTE | 2019-10-03 19:21 | NUR ---
REPORT FROM EVI ARELLANO. PT NOTED UP AMBULATING IN ROOM. NO APPARENT DISTRESS NOTED. PT C/O GENERALIZED PAIN 7-10. PT JUST MEDICATED PRIOR BY DAYSHIFT NURSE. PT VOICED C/O PAIN MEDICATION DOSE BEING INCREASED BY PHYSICIAN AND NEEDING MORE DUE TO PAIN NOT RESOLVED BY LESSER DOSE THAT HAS ALREADY BEEN GIVEN. DISCUSSED POC. PT VERBALIZED UNDERSTANDING. IV SITE APPEARS HEALTHY. CALL LIGHT WITHIN REACH. WILL CONTINUE TO MONITOR AND CONTACT TARP REPAIRER PHYSICIAN TO DISCUSS PT CONCERNS.
--- NOTE | 2019-10-03 19:49 | NUR ---
ORDERS RECEIVED FROM PARTS COUNTERPERSON PHYSICIAN FOR X1 DOSE OF MORPHINE 1MG IV. WILL MEDICATE ONCE PROFILED BY PHARMACY. PT MADE AWARE, VERBALIZED UNDERSTANDING.
--- NOTE | 2019-10-03 23:14 | NUR ---
PT RESTING IN BED. NO APPARENT DISTRESS NOTED. RESPIRATIONS EVEN AND UNLABORED. CALL LIGHT WITHIN REACH. WILL CONTINUE TO MONITOR.
[2019-10-04 03:56] VITALS: BP 133/81
--- NOTE | 2019-10-04 04:46 | NUR ---
PT MEDICATED FOR GENERALIZED PAIN 8-10. PT REPORTS FEELING A LITTLE BETTER AFTER GETTING SOME SLEEP. PT DENIES ANY OTHER WANTS OR NEEDS. CALL LIGHT WITHIN REACH. WILL CONTINUE TO MONITOR.
[2019-10-04 08:24] VITALS: BP 131/90
--- NOTE | 2019-10-04 08:31 | NUR ---
ASSESSMENT AND VIATLS COMPLETED AT THIS TIME. BP 131/90, HR 64, O2 99% ON ROOM AIR. RESPIRATIONS ARE EVEN AND UNLABORED WITH NO SIGNS OF DISTRESS. LUNG SOUNDS ARE CLEAR. HEART RHYTHM IS NORMAL. BOWEL SOUNDS ARE ACTIVE IN ALL QUADRANTS WITH NO TENDERNESS. LAST REPORTED BM 10/02/2019. RADIAL AND PEDAL PULSES ARE STRONG WITH NORMAL CAPILLARY REFILL. PT PRESENTS WITH TRACE EDEMA. SKIN IS WARM AND DRY WITH NO BREAKDOWN. IV FLUSHED, SITE APPEARS HEALTHY AND PATENT. PT COMPLAINS OF 8/10 GENERALIZED PAIN, TYLENOL OFFERED, PT DENIED. EDUCATED PT THAT MORPHINE WAS NOT AVAILABLE AT THIS TIME. PT VERABLIZED UNDERSTANDING. MAYA ANRP NOTIFIED OF PAIN MEDICATIONS. PT DENIES ANY OTHER PAINS OR DISCOMFORTS AT THIS TIME. ALL SAFETY PRECAUTIONS IN PLACE WITH CALL LIGHT IN REACH.WILL CONTONTINUE TO MONITOR.
[2019-10-04 08:40] VITALS: BP 131/90
[2019-10-04 10:48] LABS: HEMATOCRIT 37.1 % (37.0-47.0); HEMOGLOBIN 11.4 g/dl (12.0-16.0); MEAN CELL VOLUME 94.6 fL CALC (80.0-100.0); MEAN CORPUSCULAR HGB 29.1 pG CALC (26.0-32.0); MEAN CORPUSCULAR HGB CONC 30.7 g/dL CAL (32.0-36.0); RED BLOOD COUNT 3.92 mill/uL (4.20-5.60); RED CELL DISTRI WIDTH 15.3 % (11.5-15.5)
[2019-10-04 11:09] LABS: ALBUMIN 4.5 g/dL (3.2-5.0); ALKALINE PHOSPHATASE 80 u/l (38-126); ANION GAP 8 (6-22 (CALC)); BUN 20 mg/dL (7-17); BUN/CREATININE RATIO 19 (12-20 (CALC)); C-REACTIVE PROTEIN < 0.5 mg/dL (0-0.9); CARBON DIOXIDE 31 mmol/l (22-30); CHLORIDE 101 mmol/l (95-108); CREATININE 1.1 mg/dL (0.5-1.0); GFR 52 ML/MIN (>=60 (CALC)); GFR FOR AFR.AMER. > 60 ML/MIN (>=60 (CALC)); POTASSIUM 4.3 mmol/l (3.5-5.1); SGOT/AST 66 u/l (14-36); SODIUM 136 mmol/l (137-146); TOTAL PROTEIN 7.2 g/dL (6.3-8.2)
[2019-10-04 11:13] LABS: BILIRUBIN, TOTAL 0.2 mg/dL (0.0-1.4)
--- NOTE | 2019-10-04 11:36 | NUR ---
REASSESSMENT OF PAIN AFTER MORPHINE ADMINISTERED, PT RATES PAIN TO BE A 2/10 . PT STATES MORPHINE IS WORKING. RESPIRATIONS ARE EVEN AND UNLABORED. ALL SAFTEY PRECAUTIONS WITH CALL LIGHT IN REACH.WILL CONTINUE TO MONITOR
--- NOTE | 2019-10-04 12:30 | NUR ---
PT RESTING IN SEMI FOWLERS POSITION. RESPIRATIONS ARE EVEN AND UNLABORED WITH NO SIGNS OF DISTRESS. PT DENIES ANY PAIN OR DISCOMFORTS AT THIS TIME. ALL SAFTEY PRECAUTIONS REMAIN IN PLACE WITHC ALL LIGHT IN REACH. WILL CONTINUE TO MONITOR
--- NOTE | 2019-10-04 12:56 | NUR ---
DR. DUVALL AND MAYA, CLAYTON AT BEDSIDE DISCUSSING POC WITH PT
[2019-10-04 13:06] LABS: URINE BILIRUBIN - DIPSTICK NEGATIVE (NEGATIVE); URINE BLOOD DIPSTICK SMALL (NEGATIVE); URINE COLOR YELLOW; URINE GLUCOSE - DIPSTICK NEGATIVE (NEGATIVE); URINE KETONE NEGATIVE (NEGATIVE); URINE LEUK ESTERASE NEGATIVE (NEGATIVE); URINE NITRITE - DIPSTICK NEGATIVE (Negative); URINE PH 5.5 (4.5-8.0); URINE PROTEIN - DIPSTICK NEGATIVE (NEG-TRACE); URINE UROBILINOGEN - DIPSTICK 0.2 E.U./dL (0.2)
[2019-10-04 13:15] LABS: URINE SQUAMOUS EPITHELIAL CELL FEW EPI/hpf (0-FEW); URINE TRICHOMONAS FEW hpf
[2019-10-04] MEDS ORDERED: OXYCODONE5 M1 PO ×2 (13:15)
[2019-10-04] MEDS ORDERED: METRONIDAZOL500 MG PO (14:45)
--- NOTE | 2019-10-04 15:04 | NUR ---
Discharge instructions given. Patient verbalizes understanding of same. Discharged in stable condition via Ambulatory to Home with family. All belongings sent with pt. PT LEFT FLOOR VIA AMBULATING WITH STEADY GAIT IN STABLE CONDITION. PT EDUCATED ON DISCHARGE INTRUCTIONS AND FLAGYL. PT VERBALIZED UNDERSTANDING. PT REMOVED IV HERSELF. IV LOCATED WITH CATHATER STILL INTACT. PT LEFT FLOOR WITH ALL BELONGINGS AND DISCHARGE INTRUCTIONS
[2019-10-04 15:30] LABS: TSH, 3RD GENERATION > 100.00 uIU/mL (0.47 - 4.68)
== END 2019-10-04 15:05 | disposition home or self-care (01) | DRG 392 ==
LOC: ED 09:14 → ED-I 10:48 → ED 10:58 → ED-I 10:59 → MS2 14:11
PROVIDERS: Family Medicine; Nurse Practitioner Family; ADMIT Internal Medicine; ATTEND Internal Medicine
DX: R10.30 Lower abdominal pain, unspecified (principal); Q60.0 Renal agenesis, unilateral; A59.00 Urogenital trichomoniasis, unspecified; M25.50 Pain in unspecified joint; E03.9 Hypothyroidism, unspecified; I10 Essential (primary) hypertension; I25.10 Atherosclerotic heart disease of native coronary artery without angina pectoris; E66.01 Morbid (severe) obesity due to excess calories; F17.210 Nicotine dependence, cigarettes, uncomplicated; Z20.828 Contact with and (suspected) exposure to other viral communicable diseases
CPT/HCPCS: G0378; J1650

== ENCOUNTER 2019-10-10 06:27 | Emergency (ER) | payer SELFPAY ==
[~2019-10-10] VITALS: Ht 160 cm; Wt 100.0 kg
[~2019-10-10 06:27] MED LIST changes: +METRONIDAZOL500 MG PO; +OXYCODONE5 M1 PO
[2019-10-10 07:05] LABS: HEMATOCRIT 41.2 % (37.0-47.0); HEMOGLOBIN 12.7 g/dl (12.0-16.0); IMMATURE GRANULOCYTES 2.3 % (0.0-5.0); MEAN CELL VOLUME 93.2 fL CALC (80.0-100.0); MEAN CORPUSCULAR HGB 28.7 pG CALC (26.0-32.0); MEAN CORPUSCULAR HGB CONC 30.8 g/dL CAL (32.0-36.0); NEUT# 3.43 thou/uL (2.00-7.15); RED BLOOD COUNT 4.42 mill/uL (4.20-5.60); RED CELL DISTRI WIDTH 14.9 % (11.5-15.5)
[2019-10-10 07:17] LABS: ALBUMIN 5.1 g/dL (3.2-5.0); ALKALINE PHOSPHATASE 105 u/l (38-126); AMYLASE 110 u/l (30-110); ANION GAP 12 (6-22 (CALC)); BUN 16 mg/dL (7-17); BUN/CREATININE RATIO 17 (12-20 (CALC)); CARBON DIOXIDE 28 mmol/l (22-30); CHLORIDE 101 mmol/l (95-108); CREATININE 0.9 mg/dL (0.5-1.0); GFR > 60 ML/MIN (>=60 (CALC)); GFR FOR AFR.AMER. > 60 ML/MIN (>=60 (CALC)); LIPASE 98 u/l (23-300); MAGNESIUM 2.2 mg/dL (1.6-2.3); POTASSIUM 4.8 mmol/l (3.5-5.1); SGOT/AST 67 u/l (14-36); SODIUM 137 mmol/l (137-146)
[2019-10-10 07:24] LABS: BILIRUBIN, TOTAL 1.4 mg/dL (0.0-1.4); TOTAL PROTEIN 9.1 g/dL (6.3-8.2)
[2019-10-10 07:26] LABS: MYOGLOBIN 106 ng/mL (0 - 62)
[2019-10-10 07:41] LABS: URINE BILIRUBIN - DIPSTICK NEGATIVE (NEGATIVE); URINE BLOOD DIPSTICK NEGATIVE (NEGATIVE); URINE COLOR YELLOW; URINE GLUCOSE - DIPSTICK NEGATIVE (NEGATIVE); URINE KETONE NEGATIVE (NEGATIVE); URINE LEUK ESTERASE NEGATIVE (NEGATIVE); URINE NITRITE - DIPSTICK NEGATIVE (Negative); URINE PROTEIN - DIPSTICK NEGATIVE (NEG-TRACE); URINE SPECIFIC GRAVITY 1.015; URINE UROBILINOGEN - DIPSTICK 0.2 E.U./dL (0.2)
[2019-10-10] MEDS ORDERED: ONDANSETRON4 MG PO ×2 (08:18)
[2019-10-10 08:34] VITALS: BP 145/82
[2019-10-10 09:10] LABS: TSH, 3RD GENERATION > 100.00 uIU/mL (0.47 - 4.68)
== END 2019-10-10 08:39 | disposition home or self-care (01) | DRG 866 ==
LOC: ED 06:27
PROVIDERS: Family Medicine
DX: B34.9 Viral infection, unspecified (principal); I10 Essential (primary) hypertension; R74.8 Abnormal levels of other serum enzymes; E07.89 Other specified disorders of thyroid; F17.200 Nicotine dependence, unspecified, uncomplicated

== ENCOUNTER 2019-11-11 18:09 | Emergency (ER) | payer SELFPAY ==
[~2019-11-11] VITALS: Ht 160 cm; Wt 110.0 kg
[~2019-11-11 18:09] MED LIST changes: +ONDANSETRON4 MG PO
[2019-11-11 19:13] LABS: HEMATOCRIT 38.4 % (37.0-47.0); HEMOGLOBIN 12.1 g/dl (12.0-16.0); IMMATURE GRANULOCYTES 0.5 % (0.0-5.0); MEAN CORPUSCULAR HGB 28.7 pG CALC (26.0-32.0); MEAN CORPUSCULAR HGB CONC 31.5 g/dL CAL (32.0-36.0); NEUT# 3.63 thou/uL (2.00-7.15); RED BLOOD COUNT 4.22 mill/uL (4.20-5.60); RED CELL DISTRI WIDTH 14.4 % (11.5-15.5)
[2019-11-11] MEDS ORDERED: WELLBUTRIN100 M2 PO (19:21)
[2019-11-11] MEDS ORDERED: LASIX 40 MG TAB40 MG PO (19:21)
[2019-11-11 19:27] LABS: ALBUMIN 4.5 g/dL (3.2-5.0); ALKALINE PHOSPHATASE 104 u/l (38-126); BUN 13 mg/dL (7-17); BUN/CREATININE RATIO 16 (12-20 (CALC)); CARBON DIOXIDE 26 mmol/l (22-30); CHLORIDE 106 mmol/l (95-108); CREATININE 0.8 mg/dL (0.5-1.0); GFR > 60 ML/MIN (>=60 (CALC)); GFR FOR AFR.AMER. > 60 ML/MIN (>=60 (CALC)); SGOT/AST 24 u/l (14-36); SODIUM 137 mmol/l (137-146); TOTAL PROTEIN 7.8 g/dL (6.3-8.2)
[2019-11-11 19:29] LABS: ANION GAP 9 (6-22 (CALC)); BILIRUBIN, TOTAL 0.3 mg/dL (0.0-1.4); POTASSIUM 3.7 mmol/l (3.5-5.1)
[2019-11-11 19:50] LABS: URINE BILIRUBIN - DIPSTICK NEGATIVE (NEGATIVE); URINE BLOOD DIPSTICK NEGATIVE (NEGATIVE); URINE COLOR YELLOW; URINE GLUCOSE - DIPSTICK NEGATIVE (NEGATIVE); URINE KETONE NEGATIVE (NEGATIVE); URINE LEUK ESTERASE NEGATIVE (NEGATIVE); URINE NITRITE - DIPSTICK NEGATIVE (Negative); URINE PROTEIN - DIPSTICK NEGATIVE (NEG-TRACE); URINE SPECIFIC GRAVITY <=1.005; URINE UROBILINOGEN - DIPSTICK 0.2 E.U./dL (0.2)
[2019-11-11 20:08] LABS: TSH, 3RD GENERATION 27.5 uIU/mL (0.47 - 4.68)
[2019-11-11 21:18] VITALS: BP 178/94
[2019-11-11] MEDS ORDERED: SYNTHROID100 MCG PO (21:21)
== END 2019-11-11 21:49 | disposition home or self-care (01) | DRG 866 ==
LOC: ED 18:09
PROVIDERS: Student in an Organized Health Care Education/Training Program
DX: B34.9 Viral infection, unspecified (principal); M25.50 Pain in unspecified joint; G89.29 Other chronic pain; E03.9 Hypothyroidism, unspecified; I10 Essential (primary) hypertension; F17.200 Nicotine dependence, unspecified, uncomplicated; Z20.828 Contact with and (suspected) exposure to other viral communicable diseases

== ENCOUNTER 2019-11-28 02:22 | Emergency (ER) | payer SELFPAY ==
[~2019-11-28] VITALS: Ht 160 cm; Wt 109.0 kg
[2019-11-28] MEDS ORDERED: SYNTHROID200 MCG PO (02:41)
[2019-11-28] MEDS ORDERED: K-TAB20 MEQ PO (02:46)
[2019-11-28 02:57] LABS: URINE BILIRUBIN - DIPSTICK NEGATIVE (NEGATIVE); URINE BLOOD DIPSTICK NEGATIVE (NEGATIVE); URINE COLOR YELLOW; URINE GLUCOSE - DIPSTICK NEGATIVE (NEGATIVE); URINE KETONE NEGATIVE (NEGATIVE); URINE LEUK ESTERASE NEGATIVE (NEGATIVE); URINE NITRITE - DIPSTICK NEGATIVE (Negative); URINE PH 5.5 (4.5-8.0); URINE PROTEIN - DIPSTICK NEGATIVE (NEG-TRACE); URINE SPECIFIC GRAVITY >=1.030; URINE UROBILINOGEN - DIPSTICK 0.2 E.U./dL (0.2)
[2019-11-28 02:59] VITALS: BP 113/56
[2019-11-28 03:00] LABS: HEMATOCRIT 40.2 % (37.0-47.0); HEMOGLOBIN 12.2 g/dl (12.0-16.0); IMMATURE GRANULOCYTES 0.7 % (0.0-5.0); MEAN CELL VOLUME 91.8 fL CALC (80.0-100.0); MEAN CORPUSCULAR HGB 27.9 pG CALC (26.0-32.0); MEAN CORPUSCULAR HGB CONC 30.3 g/dL CAL (32.0-36.0); NEUT# 4.04 thou/uL (2.00-7.15); RED BLOOD COUNT 4.38 mill/uL (4.20-5.60); RED CELL DISTRI WIDTH 14.3 % (11.5-15.5)
[2019-11-28 03:16] LABS: ALKALINE PHOSPHATASE 87 u/l (38-126); BILIRUBIN, TOTAL 0.3 mg/dL (0.0-1.4); BUN 17 mg/dL (7-17); BUN/CREATININE RATIO 32 (12-20 (CALC)); CHLORIDE 113 mmol/l (95-108); CREATININE 0.5 mg/dL (0.5-1.0); GFR > 60 ML/MIN (>=60 (CALC)); GFR FOR AFR.AMER. > 60 ML/MIN (>=60 (CALC)); SODIUM 138 mmol/l (137-146)
[2019-11-28 03:17] LABS: ANION GAP 9 (6-22 (CALC)); CARBON DIOXIDE 19 mmol/l (22-30); POTASSIUM 2.6 mmol/l (3.5-5.1); SGOT/AST 44 u/l (14-36); TOTAL PROTEIN 5.8 g/dL (6.3-8.2)
[2019-11-28 03:28] LABS: MYOGLOBIN 22 ng/mL (0 - 62)
[2019-11-28 03:46] LABS: TSH, 3RD GENERATION 3.67 uIU/mL (0.47 - 4.68)
== END 2019-11-28 02:57 | disposition left against medical advice (07) | DRG 93 ==
LOC: ED 02:22 → AMA 03:04
PROVIDERS: Emergency Medicine
DX: G89.29 Other chronic pain (principal); R06.02 Shortness of breath; I10 Essential (primary) hypertension; F17.210 Nicotine dependence, cigarettes, uncomplicated; Z91.19 Patient's noncompliance with other medical treatment and regimen; Z20.828 Contact with and (suspected) exposure to other viral communicable diseases

== ENCOUNTER 2020-02-18 19:27 | Emergency (ER) | payer SELFPAY ==
[~2020-02-18] VITALS: Ht 160 cm; Wt 104.5 kg
[~2020-02-18 19:27] MED LIST changes: +K-TAB20 MEQ PO; +SYNTHROID200 MCG PO
[2020-02-18] MEDS ORDERED: WELLBUTRIN100 M2 PO (20:01)
[2020-02-18 21:10] LABS: HEMOGLOBIN 13.1 g/dl (12.0-16.0); IMMATURE GRANULOCYTES 0.8 % (0.0-5.0); MEAN CELL VOLUME 87.9 fL CALC (80.0-100.0); MEAN CORPUSCULAR HGB 27.4 pG CALC (26.0-32.0); MEAN CORPUSCULAR HGB CONC 31.2 g/dL CAL (32.0-36.0); NEUT# 4.4 thou/uL (2.00-7.15); RED BLOOD COUNT 4.78 mill/uL (4.20-5.60); RED CELL DISTRI WIDTH 14.8 % (11.5-15.5)
[2020-02-18 21:17] LABS: ALKALINE PHOSPHATASE 97 u/l (38-126); BUN 17 mg/dL (7-17); BUN/CREATININE RATIO 17 (12-20 (CALC)); CHLORIDE 101 mmol/l (95-108); ETHYL ALCOHOL 0 mg/dl (0-30); GFR 58 ML/MIN (>=60 (CALC)); GFR FOR AFR.AMER. > 60 ML/MIN (>=60 (CALC)); SGOT/AST 36 u/l (14-36); SODIUM 135 mmol/l (137-146)
[2020-02-18 21:38] LABS: ALBUMIN 4.5 g/dL (3.2-5.0); ANION GAP 9 (6-22 (CALC)); BILIRUBIN, TOTAL 0.6 mg/dL (0.0-1.4); CARBON DIOXIDE 29 mmol/l (22-30); POTASSIUM 4.4 mmol/l (3.5-5.1); TOTAL PROTEIN 8.2 g/dL (6.3-8.2)
[2020-02-18 21:50] LABS: URINE BILIRUBIN - DIPSTICK NEGATIVE (NEGATIVE); URINE BLOOD DIPSTICK NEGATIVE (NEGATIVE); URINE COLOR YELLOW; URINE GLUCOSE - DIPSTICK NEGATIVE (NEGATIVE); URINE KETONE NEGATIVE (NEGATIVE); URINE NITRITE - DIPSTICK NEGATIVE (Negative); URINE PROTEIN - DIPSTICK NEGATIVE (NEG-TRACE); URINE UROBILINOGEN - DIPSTICK 0.2 E.U./dL (0.2)
[2020-02-18 21:51] LABS: URINE LEUK ESTERASE TRACE (NEGATIVE)
[2020-02-18 23:15] VITALS: BP 133/70
== END 2020-02-18 23:00 | disposition designated cancer center or children's hospital (05) | DRG 881 ==
LOC: ED 19:27
PROVIDERS: Emergency Medicine
DX: F32.9 Major depressive disorder, single episode, unspecified (principal); S61.512A Laceration without foreign body of left wrist, initial encounter; I10 Essential (primary) hypertension; F17.200 Nicotine dependence, unspecified, uncomplicated; X78.9XXA Intentional self-harm by unspecified sharp object, initial encounter
CPT/HCPCS: J2060

== ENCOUNTER 2020-05-06 16:27 | Emergency (ER) | payer SELFPAY ==
[~2020-05-06] VITALS: Ht 160 cm; Wt 100.0 kg
[2020-05-06] MEDS ORDERED: SYNTHROID175 MCG PO (17:01)
[2020-05-06] MEDS ORDERED: TRAZODONE50 MG PO (17:02)
[2020-05-06 19:00] VITALS: BP 143/68
== END 2020-05-06 19:00 | disposition designated cancer center or children's hospital (05) | DRG 605 ==
LOC: ED 16:27
DX: S10.91XA Abrasion of unspecified part of neck, initial encounter (principal); S60.812A Abrasion of left wrist, initial encounter; S60.811A Abrasion of right wrist, initial encounter; F20.0 Paranoid schizophrenia; I10 Essential (primary) hypertension; F17.200 Nicotine dependence, unspecified, uncomplicated; X78.1XXA Intentional self-harm by knife, initial encounter; X78.0XXA Intentional self-harm by sharp glass, initial encounter

== ENCOUNTER 2020-05-11 18:19 | Observation (INO) | payer SELFPAY ==
[~2020-05-11] VITALS: Ht 160 cm; Wt 100.0 kg
[2020-05-11 19:34] LABS: HEMOGLOBIN 12.9 g/dl (12.0-16.0); IMMATURE GRANULOCYTES 0.5 % (0.0-5.0); MEAN CELL VOLUME 89.3 fL CALC (80.0-100.0); MEAN CORPUSCULAR HGB 28.1 pG CALC (26.0-32.0); MEAN CORPUSCULAR HGB CONC 31.5 g/dL CAL (32.0-36.0); NEUT# 4.03 thou/uL (2.00-7.15); RED BLOOD COUNT 4.59 mill/uL (4.20-5.60); RED CELL DISTRI WIDTH 15.3 % (11.5-15.5)
[2020-05-11 19:53] LABS: ANION GAP 13 (6-22 (CALC)); BUN 32 mg/dL (7-17); BUN/CREATININE RATIO 33 (12-20 (CALC)); CARBON DIOXIDE 30 mmol/l (22-30); CHLORIDE 99 mmol/l (95-108); GFR 58 ML/MIN (>=60 (CALC)); GFR FOR AFR.AMER. > 60 ML/MIN (>=60 (CALC)); SODIUM 139 mmol/l (137-146)
[2020-05-11 22:40] VITALS: BP 130/83
[2020-05-11 23:55] VITALS: BP 119/62
[2020-05-12 01:55] VITALS: BP 136/65
[2020-05-12 03:55] VITALS: BP 116/56
[2020-05-12 06:55] LABS: HEMATOCRIT 39.8 % (37.0-47.0); HEMOGLOBIN 12.4 g/dl (12.0-16.0); IMMATURE GRANULOCYTES 0.6 % (0.0-5.0); MEAN CELL VOLUME 89.8 fL CALC (80.0-100.0); MEAN CORPUSCULAR HGB CONC 31.2 g/dL CAL (32.0-36.0); NEUT# 2.94 thou/uL (2.00-7.15); RED BLOOD COUNT 4.43 mill/uL (4.20-5.60); RED CELL DISTRI WIDTH 15.5 % (11.5-15.5)
[2020-05-12 07:19] LABS: ALBUMIN 4.4 g/dL (3.2-5.0); ALKALINE PHOSPHATASE 116 u/l (38-126); ANION GAP 10 (6-22 (CALC)); BILIRUBIN, TOTAL 0.6 mg/dL (0.0-1.4); BUN 27 mg/dL (7-17); BUN/CREATININE RATIO 33 (12-20 (CALC)); CALCULATED LDLCHOLESTEROL 133 mg/dL (62-129 (CALC)); CARBON DIOXIDE 30 mmol/l (22-30); CHLORIDE 102 mmol/l (95-108); CHOLESTEROL HDL RATIO 3.2 (<4.4 (CALC)); CREATININE 0.8 mg/dL (0.5-1.0); GFR > 60 ML/MIN (>=60 (CALC)); GFR FOR AFR.AMER. > 60 ML/MIN (>=60 (CALC)); HDL CHOLESTEROL 70 mg/dL (>=40); MAGNESIUM 2.2 mg/dL (1.6-2.3); POTASSIUM 4.2 mmol/l (3.5-5.1); SGOT/AST 25 u/l (14-36); SODIUM 138 mmol/l (137-146); TOTAL CHOLESTEROL 225 mg/dl (0-199); TOTAL PROTEIN 7.5 g/dL (6.3-8.2); TOTAL TRIGLYCERIDES 111 mg/dl (30-149); VLDL CHOLESTROL 22 mg/dl (2-49 (CALC))
[2020-05-12] MEDS ORDERED: XANAX1 MG PO (12:30)
[2020-05-12] MEDS ORDERED: LEVOTHYROXIN200 MC2 PO ×3 (12:31→12:33)
[2020-05-12 13:33] VITALS: BP 133/60
== END 2020-05-12 13:33 | disposition home or self-care (01) | DRG 313 ==
LOC: ED 18:19 → ED-I 20:50 → ED 21:27 → ED-I 21:28
PROVIDERS: Family Medicine; Nurse Practitioner; ADMIT Internal Medicine; ATTEND Internal Medicine
DX: R07.9 Chest pain, unspecified (principal); Q60.0 Renal agenesis, unilateral; F20.0 Paranoid schizophrenia; F41.0 Panic disorder [episodic paroxysmal anxiety]; I10 Essential (primary) hypertension; E03.9 Hypothyroidism, unspecified; T42.4X6A Underdosing of benzodiazepines, initial encounter; T38.1X6A Underdosing of thyroid hormones and substitutes, initial encounter; I25.10 Atherosclerotic heart disease of native coronary artery without angina pectoris; F31.9 Bipolar disorder, unspecified; F17.210 Nicotine dependence, cigarettes, uncomplicated; Z91.5 Personal history of self-harm; Z91.128 Patient's intentional underdosing of medication regimen for other reason; Z87.440 Personal history of urinary (tract) infections; Z85.43 Personal history of malignant neoplasm of ovary; Z95.5 Presence of coronary angioplasty implant and graft; Z20.822 Contact with and (suspected) exposure to COVID-19
CPT/HCPCS: J1650; J2060

== ENCOUNTER 2020-12-08 10:24 | Emergency (ER) | payer SELFPAY ==
[~2020-12-08] VITALS: Ht 160 cm; Wt 100.0 kg
[2020-12-08 11:38] LABS: HEMATOCRIT 40.8 % (37.0-47.0); IMMATURE GRANULOCYTES 0.2 % (0.0-5.0); MEAN CELL VOLUME 91.9 fL CALC (80.0-100.0); MEAN CORPUSCULAR HGB 29.3 pG CALC (26.0-32.0); MEAN CORPUSCULAR HGB CONC 31.9 g/dL CAL (32.0-36.0); NEUT# 3.62 thou/uL (2.00-7.15); RED BLOOD COUNT 4.44 mill/uL (4.20-5.60); RED CELL DISTRI WIDTH 15.9 % (11.5-15.5)
[2020-12-08 11:43] LABS: URINE BILIRUBIN - DIPSTICK NEGATIVE (NEGATIVE); URINE BLOOD DIPSTICK NEGATIVE (NEGATIVE); URINE COLOR YELLOW; URINE GLUCOSE - DIPSTICK NEGATIVE (NEGATIVE); URINE KETONE NEGATIVE (NEGATIVE); URINE LEUK ESTERASE TRACE (NEGATIVE); URINE PROTEIN - DIPSTICK NEGATIVE (NEG-TRACE); URINE UROBILINOGEN - DIPSTICK 0.2 E.U./dL (0.2)
[2020-12-08 11:46] LABS: URINE NITRITE - DIPSTICK POSITIVE (Negative)
[2020-12-08 11:56] LABS: URINE BACTERIA MANY hpf; URINE SQUAMOUS EPITHELIAL CELL FEW EPI/hpf (0-FEW)
[2020-12-08 12:02] LABS: ALBUMIN 4.9 g/dL (3.2-5.0); ALKALINE PHOSPHATASE 82 u/l (38-126); ANION GAP 13 (6-22 (CALC)); BILIRUBIN, TOTAL 0.5 mg/dL (0.0-1.4); BUN 20 mg/dL (7-17); BUN/CREATININE RATIO 14 (12-20 (CALC)); CARBON DIOXIDE 31 mmol/l (22-30); CHLORIDE 96 mmol/l (95-108); CREATININE 1.4 mg/dL (0.5-1.0); GFR 39 ML/MIN (>=60 (CALC)); GFR FOR AFR.AMER. 48 ML/MIN (>=60 (CALC)); LIPASE 76 u/l (23-300); POTASSIUM 3.6 mmol/l (3.5-5.1); SODIUM 136 mmol/l (137-146); TOTAL PROTEIN 8.4 g/dL (6.3-8.2)
[2020-12-08 12:03] LABS: SGOT/AST 64 u/l (14-36)
[2020-12-08 13:13] LABS: TSH, 3RD GENERATION > 100.00 uIU/mL (0.47 - 4.68)
[2020-12-08] MEDS ORDERED: LEVOTHYROXIN200 MCG PO (14:39)
[2020-12-08] MEDS ORDERED: OMNI-PAC300 MG PO (14:39)
[2020-12-08 14:58] VITALS: BP 135/89
== END 2020-12-08 14:58 | disposition left against medical advice (07) | DRG 690 ==
LOC: ED 10:24
PROVIDERS: Family Medicine
DX: N39.0 Urinary tract infection, site not specified (principal); B96.20 Unspecified Escherichia coli [E. coli] as the cause of diseases classified elsewhere; E03.9 Hypothyroidism, unspecified; I10 Essential (primary) hypertension; T38.1X6A Underdosing of thyroid hormones and substitutes, initial encounter; Z91.128 Patient's intentional underdosing of medication regimen for other reason; Z95.5 Presence of coronary angioplasty implant and graft; Z91.19 Patient's noncompliance with other medical treatment and regimen; Z20.822 Contact with and (suspected) exposure to COVID-19

== ENCOUNTER 2020-12-09 20:34 | Emergency (ER) | payer SELFPAY ==
[~2020-12-09 20:34] MED LIST changes: +LEVOTHYROXIN200 MCG PO; +OMNI-PAC300 MG PO
== END 2020-12-09 21:05 | disposition left against medical advice (07) | DRG 951 ==
LOC: ED 20:34 → LWOBS 20:50
DX: Z53.21 Procedure and treatment not carried out due to patient leaving prior to being seen by health care provider (principal)

== ENCOUNTER 2020-12-11 10:46 | Emergency (ER) | payer SELFPAY ==
[~2020-12-11] VITALS: Ht 160 cm; Wt 94.5 kg
[2020-12-11 12:19] LABS: URINE BILIRUBIN - DIPSTICK NEGATIVE (NEGATIVE); URINE BLOOD DIPSTICK NEGATIVE (NEGATIVE); URINE COLOR YELLOW; URINE GLUCOSE - DIPSTICK NEGATIVE (NEGATIVE); URINE KETONE NEGATIVE (NEGATIVE); URINE LEUK ESTERASE NEGATIVE (NEGATIVE); URINE PH 6.5 (4.5-8.0); URINE PROTEIN - DIPSTICK NEGATIVE (NEG-TRACE); URINE SPECIFIC GRAVITY <=1.005; URINE UROBILINOGEN - DIPSTICK 0.2 E.U./dL (0.2)
[2020-12-11 12:19] LABS: HEMATOCRIT 40.2 % (37.0-47.0); HEMOGLOBIN 12.7 g/dl (12.0-16.0); IMMATURE GRANULOCYTES 0.5 % (0.0-5.0); MEAN CORPUSCULAR HGB CONC 31.6 g/dL CAL (32.0-36.0); NEUT# 3.17 thou/uL (2.00-7.15); RED BLOOD COUNT 4.23 mill/uL (4.20-5.60); RED CELL DISTRI WIDTH 16.1 % (11.5-15.5)
[2020-12-11 12:20] LABS: URINE NITRITE - DIPSTICK NEGATIVE (Negative)
[2020-12-11 12:36] LABS: ALBUMIN 4.3 g/dL (3.2-5.0); ALKALINE PHOSPHATASE 120 u/l (38-126); ANION GAP 11 (6-22 (CALC)); BILIRUBIN, TOTAL 0.3 mg/dL (0.0-1.4); BUN 13 mg/dL (7-17); BUN/CREATININE RATIO 12 (12-20 (CALC)); CARBON DIOXIDE 30 mmol/l (22-30); CHLORIDE 99 mmol/l (95-108); CREATININE 1.1 mg/dL (0.5-1.0); GFR 52 ML/MIN (>=60 (CALC)); GFR FOR AFR.AMER. > 60 ML/MIN (>=60 (CALC)); POTASSIUM 3.8 mmol/l (3.5-5.1); SGOT/AST 103 u/l (14-36); SODIUM 136 mmol/l (137-146); TOTAL PROTEIN 7.8 g/dL (6.3-8.2)
[2020-12-11 13:09] LABS: TSH, 3RD GENERATION > 100.00 uIU/mL (0.47 - 4.68)
[2020-12-11 14:50] VITALS: BP 115/65
== END 2020-12-11 14:50 | disposition home or self-care (01) | DRG 645 ==
LOC: ED 10:46
PROVIDERS: Emergency Medicine
DX: E03.9 Hypothyroidism, unspecified (principal); I10 Essential (primary) hypertension; E78.5 Hyperlipidemia, unspecified; I25.10 Atherosclerotic heart disease of native coronary artery without angina pectoris; M19.90 Unspecified osteoarthritis, unspecified site; F17.210 Nicotine dependence, cigarettes, uncomplicated; T50.916A Underdosing of multiple unspecified drugs, medicaments and biological substances, initial encounter; E66.01 Morbid (severe) obesity due to excess calories; Z68.36 Body mass index [BMI] 36.0-36.9, adult; Z95.5 Presence of coronary angioplasty implant and graft

== ENCOUNTER 2020-12-18 16:23 | Observation (INO) | payer SELFPAY ==
[~2020-12-18] VITALS: Ht 160 cm; Wt 100.0 kg
--- NOTE | 2020-12-18 16:23 | NUR ---
TO ROOM VIA EMS
[2020-12-18 17:35] LABS: HEMATOCRIT 39.5 % (37.0-47.0); HEMOGLOBIN 12.7 g/dl (12.0-16.0); IMMATURE GRANULOCYTES 0.4 % (0.0-5.0); MEAN CELL VOLUME 92.1 fL CALC (80.0-100.0); MEAN CORPUSCULAR HGB 29.6 pG CALC (26.0-32.0); MEAN CORPUSCULAR HGB CONC 32.2 g/dL CAL (32.0-36.0); NEUT# 5.04 thou/uL (2.00-7.15); RED BLOOD COUNT 4.29 mill/uL (4.20-5.60); RED CELL DISTRI WIDTH 15.8 % (11.5-15.5)
[2020-12-18 17:54] LABS: ALKALINE PHOSPHATASE 92 u/l (38-126); ANION GAP 13 (6-22 (CALC)); BUN 22 mg/dL (7-17); BUN/CREATININE RATIO 15 (12-20 (CALC)); CARBON DIOXIDE 28 mmol/l (22-30); CHLORIDE 98 mmol/l (95-108); CREATININE 1.5 mg/dL (0.5-1.0); GFR 36 ML/MIN (>=60 (CALC)); GFR FOR AFR.AMER. 44 ML/MIN (>=60 (CALC)); LIPASE 70 u/l (23-300); POTASSIUM 3.6 mmol/l (3.5-5.1); SGOT/AST 73 u/l (14-36); SODIUM 136 mmol/l (137-146); TOTAL PROTEIN 9.1 g/dL (6.3-8.2)
[2020-12-18 17:58] LABS: INTERNATIONAL NORMALIZED RATIO 1.1 RATIO (0.7-1.3)
--- NOTE | 2020-12-18 17:58 | NUR ---
PT STABLE ON MONITOR. BED IN LOW POSITION. CALL LIGHT IN PLACE.
[2020-12-18 18:01] LABS: BILIRUBIN, TOTAL 0.6 mg/dL (0.0-1.4)
--- NOTE | 2020-12-18 19:15 | NUR ---
PT TELLS ME SHE IS A DRUG ADDICT AND NEEDS A BIG DOSE OF PAIN MEDICINE. PA INFORMED.
[2020-12-18 19:46] LABS: URINE BILIRUBIN - DIPSTICK NEGATIVE (NEGATIVE); URINE BLOOD DIPSTICK TRACE-INTACT (NEGATIVE); URINE COLOR YELLOW; URINE GLUCOSE - DIPSTICK NEGATIVE (NEGATIVE); URINE KETONE TRACE mg/dL (NEGATIVE); URINE LEUK ESTERASE NEGATIVE (NEGATIVE); URINE PROTEIN - DIPSTICK TRACE mg/dL (NEG-TRACE); URINE SPECIFIC GRAVITY 1.025; URINE UROBILINOGEN - DIPSTICK 0.2 E.U./dL (0.2)
[2020-12-18 19:49] LABS: URINE NITRITE - DIPSTICK NEGATIVE (Negative)
--- NOTE | 2020-12-18 21:02 | NUR ---
Admission Note Report Given to: MAL HOWARD Transported by: X Wheelchair Stretcher Transported with: X Nurse Transporter X Patent IV O2 X Nib Finisher Location: ICU X MS2
[2020-12-18 21:50] VITALS: BP 161/99
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
[2020-12-19] VITALS: BP 156/99
--- NOTE | 2020-12-19 01:00 | NUR ---
PATIENT RESTING IN BED WITH EYES CLOSED. RESPS ARE EVEN AND UNLABORED. APPEARS SLEEPING AT THIS TIME. LAST TROP DRAWN AT [place] WAS NEG. IVF PATENT AND INFUSING VIA LAC SITE AT 75CC/HR. SITE REMAINS HEALTHY. TELE MONITOR IN PLACE. CALL LIGHT IN REACH. WILL CONT TO MONITOR.
[2020-12-19 04:00] VITALS: BP 139/92
--- NOTE | 2020-12-19 04:46 | NUR ---
PATIENT RESTING IN BED AT THIS TIME WITH EYES CLOSED. RESPS ARE EVEN AND UNLABORED AT THIS TIME. IVF NS PATENT AND INFUSING VIA LAC SITE AT 75CC/HR. TELE MONITOR IN PLACE-LAST READING WAS SB-54. CALL LIGHT IN REACH. WILL CONT TO MONITOR.
[2020-12-19 05:58] LABS: HEMATOCRIT 42.2 % (37.0-47.0); HEMOGLOBIN 13.6 g/dl (12.0-16.0); MEAN CORPUSCULAR HGB CONC 32.2 g/dL CAL (32.0-36.0); RED BLOOD COUNT 4.54 mill/uL (4.20-5.60); RED CELL DISTRI WIDTH 15.7 % (11.5-15.5)
[2020-12-19 06:22] LABS: CREATININE 1.3 mg/dL (0.5-1.0); MAGNESIUM 2.5 mg/dL (1.6-2.3); POTASSIUM 3.7 mmol/l (3.5-5.1)
[2020-12-19 06:29] LABS: CHOLESTEROL HDL RATIO 3.6 (<4.4 (CALC))
--- NOTE | 2020-12-19 07:30 | NUR ---
BEDSIDE REPORT RECEIVED. PT LYING IN BED SITTING UP . NO CPMPLAINTS WILL CONTINUE TO MONITOR.
[2020-12-19 08:42] VITALS: BP 105/81
--- NOTE | 2020-12-19 09:40 | NUR ---
PT LEFT Aranza DAVILA AWARE.
== END 2020-12-19 09:36 | disposition left against medical advice (07) | DRG 313 ==
LOC: ED 16:23 → MS2 19:28
PROVIDERS: Nurse Practitioner; Physician Assistant Surgical; ADMIT Internal Medicine; ATTEND Internal Medicine
DX: R07.9 Chest pain, unspecified (principal); F41.9 Anxiety disorder, unspecified; F11.10 Opioid abuse, uncomplicated; F15.10 Other stimulant abuse, uncomplicated; F13.10 Sedative, hypnotic or anxiolytic abuse, uncomplicated; F12.10 Cannabis abuse, uncomplicated; Q60.0 Renal agenesis, unilateral; I10 Essential (primary) hypertension; I25.10 Atherosclerotic heart disease of native coronary artery without angina pectoris; F31.9 Bipolar disorder, unspecified; E03.9 Hypothyroidism, unspecified; F17.210 Nicotine dependence, cigarettes, uncomplicated; E66.01 Morbid (severe) obesity due to excess calories; Z68.39 Body mass index [BMI] 39.0-39.9, adult; Z95.5 Presence of coronary angioplasty implant and graft; Z85.43 Personal history of malignant neoplasm of ovary; Z20.822 Contact with and (suspected) exposure to COVID-19
CPT/HCPCS: G0378; J1650

== ENCOUNTER 2021-01-13 12:00 | Emergency (ER) | payer SELFPAY ==
[~2021-01-13] VITALS: Ht 160 cm; Wt 120.0 kg
[2021-01-13 12:29] LABS: HEMATOCRIT 34.4 % (37.0-47.0); HEMOGLOBIN 11.2 g/dl (12.0-16.0); IMMATURE GRANULOCYTES 0.7 % (0.0-5.0); MEAN CELL VOLUME 92.7 fL CALC (80.0-100.0); MEAN CORPUSCULAR HGB 30.2 pG CALC (26.0-32.0); MEAN CORPUSCULAR HGB CONC 32.6 g/dL CAL (32.0-36.0); NEUT# 3.07 thou/uL (2.00-7.15); RED BLOOD COUNT 3.71 mill/uL (4.20-5.60); RED CELL DISTRI WIDTH 15.4 % (11.5-15.5)
[2021-01-13 12:47] LABS: ALBUMIN 4.6 g/dL (3.2-5.0); ALKALINE PHOSPHATASE 90 u/l (38-126); ANION GAP 11 (6-22 (CALC)); BILIRUBIN, TOTAL 0.7 mg/dL (0.0-1.4); BUN 15 mg/dL (7-17); BUN/CREATININE RATIO 18 (12-20 (CALC)); CARBON DIOXIDE 29 mmol/l (22-30); CHLORIDE 104 mmol/l (95-108); CPK 440 u/l (30-165); CREATININE 0.9 mg/dL (0.5-1.0); GFR > 60 ML/MIN (>=60 (CALC)); GFR FOR AFR.AMER. > 60 ML/MIN (>=60 (CALC)); POTASSIUM 4.1 mmol/l (3.5-5.1); SGOT/AST 34 u/l (14-36); SODIUM 140 mmol/l (137-146); TOTAL PROTEIN 8.2 g/dL (6.3-8.2)
[2021-01-13 13:49] LABS: TSH, 3RD GENERATION 53.9 uIU/mL (0.47 - 4.68)
[2021-01-13 15:36] VITALS: BP 109/55
== END 2021-01-13 16:05 | disposition home or self-care (01) | DRG 641 ==
LOC: ED 12:00
PROVIDERS: Family Medicine
DX: E86.0 Dehydration (principal); E66.9 Obesity, unspecified; C73 Malignant neoplasm of thyroid gland; E03.9 Hypothyroidism, unspecified; I10 Essential (primary) hypertension; I25.10 Atherosclerotic heart disease of native coronary artery without angina pectoris; F41.9 Anxiety disorder, unspecified; F17.210 Nicotine dependence, cigarettes, uncomplicated; Z79.899 Other long term (current) drug therapy; Z95.5 Presence of coronary angioplasty implant and graft

== ENCOUNTER 2021-06-09 13:55 | Emergency (ER) | payer SELFPAY ==
[~2021-06-09] VITALS: Ht 160 cm; Wt 110.0 kg
[2021-06-09 15:40] VITALS: BP 140/89
[2021-06-09] MEDS ORDERED: LEVOTHYROXIN200 MC2 PO (16:11)
[2021-06-09] MEDS ORDERED: MEDDOSEPAK PO (16:11)
[2021-06-09 16:30] VITALS: BP 140/89
== END 2021-06-09 16:30 | disposition home or self-care (01) | DRG 554 ==
LOC: ED 13:55
DX: M15.9 Polyosteoarthritis, unspecified (principal); Q60.0 Renal agenesis, unilateral; I10 Essential (primary) hypertension; I25.10 Atherosclerotic heart disease of native coronary artery without angina pectoris; F41.9 Anxiety disorder, unspecified; F17.200 Nicotine dependence, unspecified, uncomplicated; T38.1X6A Underdosing of thyroid hormones and substitutes, initial encounter; Z91.128 Patient's intentional underdosing of medication regimen for other reason; Z85.850 Personal history of malignant neoplasm of thyroid; Z95.5 Presence of coronary angioplasty implant and graft; Z92.21 Personal history of antineoplastic chemotherapy

== ENCOUNTER 2021-10-21 21:32 | Emergency (ER) | payer SELFPAY ==
[~2021-10-21] VITALS: Ht 160 cm; Wt 100.0 kg
[2021-10-21 21:54] VITALS: BP 170/110
[2021-10-21 22:00] VITALS: BP 177/112
[2021-10-21 22:02] VITALS: BP 170/110
== END 2021-10-21 22:15 | disposition left against medical advice (07) | DRG 556 ==
LOC: ED 21:32 → AMA 22:15 → ED 22:15
DX: M25.562 Pain in left knee (principal); Z53.29 Procedure and treatment not carried out because of patient's decision for other reasons

== ENCOUNTER 2022-03-01 18:42 | Observation (INO) | payer SELFPAY ==
[~2022-03-01] VITALS: Ht 160 cm; Wt 119.0 kg
--- NOTE | 2022-03-01 19:10 | NUR ---
TO ROOM 7 FOR TRIAGE AT BEDSIDE.
[2022-03-01] MEDS ORDERED: SYNTHROID25 MCG PO (19:45)
[2022-03-01] MEDS ORDERED: ALPRAZOLAM1 MG PO (19:46)
[2022-03-01] MEDS ORDERED: OLANZAPINE5 MG PO (19:47)
[2022-03-01 20:01] LABS: HEMATOCRIT 36.2 % (37.0-47.0); HEMOGLOBIN 11.6 g/dl (12.0-16.0); IMMATURE GRANULOCYTES 0.4 % (0.0-5.0); MEAN CELL VOLUME 89.2 fL CALC (80.0-100.0); MEAN CORPUSCULAR HGB 28.6 pG CALC (26.0-32.0); NEUT# 4.12 thou/uL (2.00-7.15); RED BLOOD COUNT 4.06 mill/uL (4.20-5.60); RED CELL DISTRI WIDTH 14.2 % (11.5-15.5)
[2022-03-01 20:02] LABS: URINE BILIRUBIN - DIPSTICK NEGATIVE (NEGATIVE); URINE BLOOD DIPSTICK SMALL (NEGATIVE); URINE COLOR YELLOW; URINE GLUCOSE - DIPSTICK NEGATIVE (NEGATIVE); URINE KETONE NEGATIVE (NEGATIVE); URINE LEUK ESTERASE TRACE (NEGATIVE); URINE NITRITE - DIPSTICK NEGATIVE (Negative); URINE PROTEIN - DIPSTICK NEGATIVE (NEG-TRACE); URINE UROBILINOGEN - DIPSTICK 0.2 E.U./dL (0.2)
[2022-03-01 20:10] LABS: URINE SQUAMOUS EPITHELIAL CELL MANY EPI/hpf (0-FEW)
[2022-03-01 20:14] LABS: ALBUMIN 4.2 g/dL (3.2-5.0); ALKALINE PHOSPHATASE 174 u/l (38-126); ANION GAP 13 (6-22 (CALC)); BILIRUBIN, TOTAL 0.3 mg/dL (0.0-1.4); BUN 15 mg/dL (7-17); BUN/CREATININE RATIO 14 (12-20 (CALC)); CARBON DIOXIDE 27 mmol/l (22-30); CHLORIDE 104 mmol/l (95-108); CREATININE 1.1 mg/dL (0.5-1.0); ETHYL ALCOHOL 0 mg/dl (0-30); GFR FOR AFR.AMER. > 60 ML/MIN (>=60 (CALC)); GFR OTHER RACES 52 ML/MIN (>=60 (CALC)); MAGNESIUM 2.1 mg/dL (1.6-2.3); SGOT/AST 24 u/l (14-36); SODIUM 140 mmol/l (137-146); TOTAL PROTEIN 7.6 g/dL (6.3-8.2)
[2022-03-01 20:44] LABS: TSH, 3RD GENERATION 0.64 uIU/mL (0.47 - 4.68)
--- NOTE | 2022-03-01 21:20 | NUR ---
EXPLAINED TO PT THE BA-52. PT GETTING BELIGERANT.
--- NOTE | 2022-03-01 21:34 | NUR ---
PT REQUESTED TO USE RESTROOM...SITTER WITH PT TO RESTROOM....AND CONTINUED DOWN THE [place] AND OUT THE OPEN EMS DOOR. PT WAS RETURNED TO ROOM WITH ASSIST. THREATENING TO PUNCH STAFF.
--- NOTE | 2022-03-01 22:21 | NUR ---
PT REMOVED DRESSING FROM WOUND.
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
--- NOTE | 2022-03-01 23:41 | NUR ---
UPDATE FROM POISON CONTROL. REOCOMMENDS CMP/EKG IN AM.
[2022-03-02] VITALS (14 sets, daily range): BP systolic 101–134; BP diastolic 47–82
--- NOTE | 2022-03-02 00:08 | NUR ---
PT UPSET ABOUT BEING ADMITTED. DEMANDING TO GET AN UPDATE ON HER LABS. DR TO BEDSIDE TO EXPLAIN RESULTS AND POC. PT REMAINS UPSET. REPORT WAS CALLED TO [place] RN/ICU AT [id number]. PT TO FLOOR WITH SITTER/NSG INTEGRATED LOGISTICS OPERATIONS MANAGER/HUMAN RELATIONS TEACHER. PT IS A/O. RESP EASY REG.
--- NOTE | 2022-03-02 00:14 | NUR ---
RECEIVED PT FROM ER. REPORTRECEIVED FROM ANITA SANTORO. PT ACCOMPANIED BY SITTER AND ROUTE MANAGER. PT CALM AND TEARFUL, EMOTIONAL SUPPORT PROVIDED. SUTURES INTACT LEFT WRIST. SUPERFICIAL LACERATIONS X2 NOTED TO LEFT LOWER FOREARM. PT DENIES SUICIDAL IDEATION. PT STATES, "SEE THE BLOOD MAKES ME FEEL BETTER WHEN I AM ANGRY. 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
--- NOTE | 2022-03-02 00:58 | NUR ---
PT AGITATED. SPEAKING WITH LOUD VOICE, AGGRESIVE TOWARDS STAFF. EMOTIONAL SUPPORT PROVIDED BY THIS RN. DR. DUVALL NOTIFIED. NEW ORDER RECEIVED.
--- NOTE | 2022-03-02 02:59 | NUR ---
PT REMAINS AWAKE. PT CALM. TELEVISION ON FOR DISTRACTION. NO DISTRESS NOTED.
--- NOTE | 2022-03-02 06:48 | NUR ---
REPORT GIVEN TO ANITA MELGOZA AND ANITA HENRY.
--- NOTE | 2022-03-02 08:00 | NUR ---
PATIENT LYING IN BED EATING BREAKFAST. SITTER WITH PATIENT.
--- NOTE | 2022-03-02 10:00 | NUR ---
PATIENT LYING IN BED. SITTER WITH PATIENT. PATIENT SHOWING NO S/S OF DISTRESS.
--- NOTE | 2022-03-02 11:46 | NUR ---
DR LA HAS INTERVIEWED PT BY TELECONSULT AND HAS STATED THAT PT IS SAFE TO GO HOME FROM HER PERSPECTIVE. CALL PLACED TO GRANDDAUGHTER, WHOSE BOYFRIEND DEBRA WAS ABLE TO CONFIRM THAT PT IS GOING HOME TO A SAFE ENVIRONMENT AND IS CONFIDENT THAT SHE WILL DO WELL THERE.
--- NOTE | 2022-03-02 12:23 | NUR ---
PT REACHED DAUGHTER ON HER PHONE, MALIA, WHO ASSURED ME THAT PT IS GOING HOME TO A SAFE ENVIRONMENT, AND THAT PT IS HELPFUL IN CARING FOR GRANDCHILDREN.
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
--- NOTE | 2022-03-02 13:54 | NUR ---
PT SECURED RIDE HOME, VERBALIZED UNDERSTANDING OF DC INSTRUCTIONS, TAKEN TO LOBBY. PT LEAVES IN STABLE CONDITION.
== END 2022-03-02 13:45 | disposition home or self-care (01) | DRG 605 ==
LOC: ED 18:42 → ED-I 21:55 → ED 22:51 → ICU 22:52
PROVIDERS: Emergency Medicine; ADMIT Internal Medicine; ATTEND Internal Medicine
PROC: 0HQEXZZ Repair Left Lower Arm Skin, External Approach (ICD-10-PCS; principal; 2022-03-02)
DX: S61.512A Laceration without foreign body of left wrist, initial encounter (principal); Q60.0 Renal agenesis, unilateral; F32.9 Major depressive disorder, single episode, unspecified; I10 Essential (primary) hypertension; I25.10 Atherosclerotic heart disease of native coronary artery without angina pectoris; E03.9 Hypothyroidism, unspecified; F43.10 Post-traumatic stress disorder, unspecified; F17.200 Nicotine dependence, unspecified, uncomplicated; X78.9XXA Intentional self-harm by unspecified sharp object, initial encounter; Y92.009 Unspecified place in unspecified non-institutional (private) residence as the place of occurrence of the external cause; Z85.850 Personal history of malignant neoplasm of thyroid; Z95.5 Presence of coronary angioplasty implant and graft; Z91.51 Personal history of suicidal behavior; Z92.21 Personal history of antineoplastic chemotherapy; Z62.810 Personal history of physical and sexual abuse in childhood

== ENCOUNTER 2022-04-28 16:28 | Emergency (ER) | payer SELFPAY ==
[~2022-04-28] VITALS: Ht 160 cm; Wt 100.0 kg
[~2022-04-28 16:28] MED LIST changes: +ALPRAZOLAM1 MG PO; +OLANZAPINE5 MG PO; +SYNTHROID25 MCG PO
[2022-04-28] MEDS ORDERED: CEPHALEXIN500 MG PO (18:29)
[2022-04-28 18:36] VITALS: BP 139/87
== END 2022-04-28 18:41 | disposition home or self-care (01) | DRG 607 ==
LOC: ED 16:28
DX: R21 Rash and other nonspecific skin eruption (principal); I25.10 Atherosclerotic heart disease of native coronary artery without angina pectoris; Z95.5 Presence of coronary angioplasty implant and graft; Z85.850 Personal history of malignant neoplasm of thyroid; I10 Essential (primary) hypertension

== ENCOUNTER 2022-05-03 18:04 | Emergency (ER) | payer SELFPAY ==
[~2022-05-03] VITALS: Ht 162.6 cm; Wt 100.9 kg
[~2022-05-03 18:04] MED LIST changes: +CEPHALEXIN500 MG PO
[2022-05-03] MEDS ORDERED: ATIVAN1 MG PO (18:38)
[2022-05-03 18:47] VITALS: BP 147/98
== END 2022-05-03 19:03 | disposition home or self-care (01) | DRG 880 ==
LOC: ED 18:04
DX: F41.9 Anxiety disorder, unspecified (principal); I10 Essential (primary) hypertension; I25.10 Atherosclerotic heart disease of native coronary artery without angina pectoris; Q60.0 Renal agenesis, unilateral; F17.200 Nicotine dependence, unspecified, uncomplicated; Z95.5 Presence of coronary angioplasty implant and graft; Z85.850 Personal history of malignant neoplasm of thyroid; Z92.21 Personal history of antineoplastic chemotherapy
CPT/HCPCS: J2060

== ENCOUNTER 2022-07-13 08:11 | Emergency (ER) | payer SELFPAY ==
[~2022-07-13] VITALS: Ht 162.6 cm; Wt 105.4 kg
[2022-07-13 08:45] VITALS: BP 153/98
[2022-07-13 09:01] VITALS: BP 154/100
[2022-07-13 09:16] VITALS: BP 142/86
[2022-07-13 09:31] VITALS: BP 134/87
[2022-07-13 09:43] LABS: BASO% 0.8 % (0-3); EOS% 2.7 % (0-8); HEMOGLOBIN 13.4 g/dl (12.0-16.0); IMMATURE GRANULOCYTES 0.3 % (0.0-5.0); LYMPH% 34.8 % (15-41); MEAN CELL VOLUME 85.3 fL CALC (80.0-100.0); MEAN CORPUSCULAR HGB CONC 31.6 g/dL CAL (32.0-36.0); MONO% 7.4 % (2-13); NEUT# 4.25 thou/uL (2.00-7.15); RED BLOOD COUNT 4.97 mill/uL (4.20-5.60); RED CELL DISTRI WIDTH 18.1 % (11.5-15.5)
[2022-07-13 09:45] LABS: HEMATOCRIT 42.4 % (37.0-47.0)
[2022-07-13 09:46] VITALS: BP 145/91
[2022-07-13 09:56] LABS: ALKALINE PHOSPHATASE 115 u/l (38-126); ANION GAP 15 (6-22 (CALC)); BUN 18 mg/dL (7-17); BUN/CREATININE RATIO 16 (12-20 (CALC)); CARBON DIOXIDE 26 mmol/l (22-30); CHLORIDE 102 mmol/l (95-108); CREATININE 1.2 mg/dL (0.5-1.0); GFR FOR AFR.AMER. 57 ML/MIN (>=60 (CALC)); GFR OTHER RACES 47 ML/MIN (>=60 (CALC)); POTASSIUM 3.9 mmol/l (3.5-5.1); SODIUM 140 mmol/l (137-146)
[2022-07-13 09:57] LABS: BILIRUBIN, TOTAL 0.9 mg/dL (0.02-1.3); SGOT/AST 50 u/l (14-36)
[2022-07-13] MEDS ORDERED: ATIVAN1 M1 PO (10:36)
[2022-07-13 10:46] VITALS: BP 145/91
== END 2022-07-13 10:48 | disposition left against medical advice (07) | DRG 313 ==
LOC: ED 08:11
PROVIDERS: Family Medicine
DX: R07.9 Chest pain, unspecified (principal); Z53.29 Procedure and treatment not carried out because of patient's decision for other reasons; F17.210 Nicotine dependence, cigarettes, uncomplicated; I10 Essential (primary) hypertension; Z95.5 Presence of coronary angioplasty implant and graft; I25.10 Atherosclerotic heart disease of native coronary artery without angina pectoris; Z85.850 Personal history of malignant neoplasm of thyroid

== ENCOUNTER 2022-07-21 10:41 | Emergency (ER) | payer SELFPAY ==
[2022-07-21] VITALS (20 sets, daily range): BP systolic 112–168; BP diastolic 39–108
[~2022-07-21] VITALS: Ht 162.6 cm; Wt 127.0 kg
[~2022-07-21 10:41] MED LIST changes: +ATIVAN1 M1 PO
[2022-07-21 11:40] LABS: URINE BILIRUBIN - DIPSTICK NEGATIVE (NEGATIVE); URINE BLOOD DIPSTICK TRACE-INTACT (NEGATIVE); URINE COLOR YELLOW; URINE GLUCOSE - DIPSTICK NEGATIVE (NEGATIVE); URINE KETONE NEGATIVE (NEGATIVE); URINE LEUK ESTERASE NEGATIVE (NEGATIVE); URINE NITRITE - DIPSTICK NEGATIVE (Negative); URINE PROTEIN - DIPSTICK NEGATIVE (NEG-TRACE); URINE SPECIFIC GRAVITY 1.015; URINE UROBILINOGEN - DIPSTICK 0.2 E.U./dL (0.2)
[2022-07-21 11:40] LABS: BASO% 0.7 % (0-3); EOS% 3.1 % (0-8); HEMATOCRIT 40.7 % (37.0-47.0); HEMOGLOBIN 12.5 g/dl (12.0-16.0); IMMATURE GRANULOCYTES 0.6 % (0.0-5.0); LYMPH% 38.5 % (15-41); MEAN CELL VOLUME 89.1 fL CALC (80.0-100.0); MEAN CORPUSCULAR HGB 27.4 pG CALC (26.0-32.0); MEAN CORPUSCULAR HGB CONC 30.7 g/dL CAL (32.0-36.0); MONO% 7.6 % (2-13); NEUT# 4.09 thou/uL (2.00-7.15); NEUT% 49.5 % (42-76); RED BLOOD COUNT 4.57 mill/uL (4.20-5.60); RED CELL DISTRI WIDTH 17.4 % (11.5-15.5)
[2022-07-21 11:51] LABS: ALBUMIN 4.6 g/dL (3.2-5.0); ALKALINE PHOSPHATASE 146 u/l (38-126); ANION GAP 15 (6-22 (CALC)); BUN 23 mg/dL (7-17); BUN/CREATININE RATIO 27 (12-20 (CALC)); CARBON DIOXIDE 26 mmol/l (22-30); CHLORIDE 104 mmol/l (95-108); CREATININE 0.9 mg/dL (0.5-1.0); GFR FOR AFR.AMER. > 60 ML/MIN (>=60 (CALC)); GFR OTHER RACES > 60 ML/MIN (>=60 (CALC)); POTASSIUM 4.3 mmol/l (3.5-5.1); SGOT/AST 29 u/l (14-36); SODIUM 140 mmol/l (137-146); TOTAL PROTEIN 7.7 g/dL (6.3-8.2)
[2022-07-21 11:53] LABS: BILIRUBIN, TOTAL 0.5 mg/dL (0.02-1.3)
[2022-07-21 15:07] LABS: AMYLASE 78 u/l (30-110); LIPASE 227 u/l (23-300)
[2022-07-21] MEDS ORDERED: ZOFRAN4 MG/TAB PO (17:50)
== END 2022-07-21 18:36 | disposition home or self-care (01) | DRG 392 ==
LOC: ED 10:41
PROVIDERS: Family Medicine
DX: R10.11 Right upper quadrant pain (principal); R10.12 Left upper quadrant pain; Q60.0 Renal agenesis, unilateral; I10 Essential (primary) hypertension; I25.10 Atherosclerotic heart disease of native coronary artery without angina pectoris; F41.9 Anxiety disorder, unspecified; E66.01 Morbid (severe) obesity due to excess calories; F17.200 Nicotine dependence, unspecified, uncomplicated; Z85.850 Personal history of malignant neoplasm of thyroid; Z92.21 Personal history of antineoplastic chemotherapy; Z95.5 Presence of coronary angioplasty implant and graft
CPT/HCPCS: Q9967

== ENCOUNTER 2022-07-22 17:39 | Emergency (ER) | payer SELFPAY ==
[~2022-07-22] VITALS: Ht 162.6 cm; Wt 107.4 kg
[~2022-07-22 17:39] MED LIST changes: +ZOFRAN4 MG/TAB PO
[2022-07-22 17:49] VITALS: BP 140/84
[2022-07-22 18:01] VITALS: BP 132/83
[2022-07-22 18:05] VITALS: BP 132/83
== END 2022-07-22 18:05 | disposition left against medical advice (07) | DRG 392 ==
LOC: ED 17:39
DX: R10.11 Right upper quadrant pain (principal); R10.31 Right lower quadrant pain; E66.01 Morbid (severe) obesity due to excess calories; I10 Essential (primary) hypertension; I25.10 Atherosclerotic heart disease of native coronary artery without angina pectoris; F17.200 Nicotine dependence, unspecified, uncomplicated; Z53.29 Procedure and treatment not carried out because of patient's decision for other reasons; Z95.5 Presence of coronary angioplasty implant and graft; Z85.850 Personal history of malignant neoplasm of thyroid; Z92.21 Personal history of antineoplastic chemotherapy

== ENCOUNTER 2023-11-04 13:42 | Emergency (ER) | payer OTHER ==
[~2023-11-04] VITALS: Ht 162.6 cm; Wt 111.5 kg
[2023-11-04 13:51] VITALS: BP 159/83
[2023-11-04] MEDS ORDERED: BACTRIM DS1 TAB PO (14:11)
[2023-11-04] MEDS ORDERED: MUPIROCIN2 % EX (14:11)
[2023-11-04 14:16] VITALS: BP 137/85
[2023-11-04 14:31] VITALS: BP 132/84
== END 2023-11-04 14:34 | disposition home or self-care (01) | DRG 603 ==
LOC: ED 13:42
DX: L01.00 Impetigo, unspecified (principal); I10 Essential (primary) hypertension; I25.10 Atherosclerotic heart disease of native coronary artery without angina pectoris; F41.9 Anxiety disorder, unspecified; F17.210 Nicotine dependence, cigarettes, uncomplicated; Z95.5 Presence of coronary angioplasty implant and graft; Z85.850 Personal history of malignant neoplasm of thyroid; Z92.21 Personal history of antineoplastic chemotherapy

== ENCOUNTER 2024-04-28 13:08 | Emergency (ER) | payer OTHER ==
[~2024-04-28] VITALS: Ht 162.6 cm; Wt 107.0 kg
[~2024-04-28 13:08] MED LIST changes: +BACTRIM DS1 TAB PO; +MUPIROCIN2 % EX
[2024-04-28 13:18] VITALS: BP 155/96
[2024-04-28] MEDS ORDERED: HYDROcodone 5 MG/Acetaminophen 325 MG/COMBO PO ONE (13:25)
[2024-04-28] MEDS ORDERED: HYDROCO/APAP1 TA9 PO (13:27)
[2024-04-28 13:31] VITALS: BP 165/99
[2024-04-28 14:00] VITALS: BP 147/91
[2024-04-28 14:14] VITALS: BP 147/91
== END 2024-04-28 14:10 | disposition home or self-care (01) | DRG 558 ==
LOC: ED 13:08
DX: M67.432 Ganglion, left wrist (principal); I10 Essential (primary) hypertension; I25.10 Atherosclerotic heart disease of native coronary artery without angina pectoris; F41.9 Anxiety disorder, unspecified; F17.200 Nicotine dependence, unspecified, uncomplicated; Z95.5 Presence of coronary angioplasty implant and graft